=== PATIENT | male | born 1940 | race Caucasian/White ===

== ENCOUNTER → 2019-12-04 | Outpatient (CLI) | payer MEDICARE ==
--- NOTE | 2019-12-04 16:44 | RAD ---
CT CHEST WO CONTRAST Indication: Lung nodule Technique: Noncontrast CT imaging was performed of the chest, multiplanar reconstruction images submitted. One or more of the following individualized dose reduction techniques were utilized for this examination: 1. Automated exposure control 2. Adjustment of the mA and/or kV according to patient size 3. Use of iterative reconstruction technique. Comparison: None other than radiographs November 05, 2019 Findings: There has been a median sternotomy. There is severe emphysema. There is no abnormal pericardial or pleural fluid, pneumothorax, or infiltrate. There is coronary calcification. There is mild likely fibrotic change near the lung apices, right greater than left. There is a small 0.3 cm right middle lobe nodule image 213 series 4. There is a small 0.4 cm right lower lobe nodule 223 series 4. There is a small 0.3 cm right lower lobe nodule image 184 series 4. There is some of atherosclerotic calcification of the thoracic and abdominal aorta. There is an exophytic cyst of the left kidney about 1.6 cm. There is also focus of exophytic hyperdensity of the superior right kidney projecting laterally about 1.1 cm with density measurements not of a simple cyst about 55 Hounsfield units. There is fairly prominent coronary calcification. Tubular ascending thoracic aorta is slightly ectatic about 3.7 cm. No significantly enlarged nodes are identified of the chest. There is no abnormality of the thyroid gland. There is multilevel thoracic degenerative disc disease greatest of mid to inferior thoracic levels. IMPRESSION: 1. There is severe emphysema. There are some small pulmonary nodules as stated, optional 12 month follow-up if increased risk factors for neoplasm as per revised Fleischner guidelines, otherwise no additional follow-up needed if considered low risk factors. 2. There is coronary calcification. 3. There is left renal cyst. There is 1 cm exophytic lesion of the right kidney which may be a hemorrhagic or complex cyst, although ultrasound may be beneficial to exclude small solid mass. Electronically signed by: Jose Elena MD (12/04/2019 4:41 PM) [id number]
== END | disposition home or self-care (01) ==
LOC: CT 12:49
PROVIDERS: ATTEND Internal Medicine Pulmonary Disease
DX: R91.8 Other nonspecific abnormal finding of lung field (principal); J43.9 Emphysema, unspecified; I25.10 Atherosclerotic heart disease of native coronary artery without angina pectoris; I70.0 Atherosclerosis of aorta; I77.810 Thoracic aortic ectasia; N28.1 Cyst of kidney, acquired
CPT/HCPCS: 71250

== ENCOUNTER → 2021-01-02 | Outpatient (CLI) | payer MEDICARE ==
--- NOTE | 2021-01-02 11:29 | RAD ---
EXAM: CT Chest without IV contrast INDICATION: Reason: LUNG NODULE / Spl. Instructions: / History: TECHNIQUE: Multi-detector row CT images were acquired from the thoracic inlet through the upper abdo men without the use of IV contrast. Sagittal and coronal images were acquired from the transaxial demi a. All CT scans performed at this facility utilize dose optimization techniques as appropriate to the exam, including the following: Automated exposure control and adjustment of the mA and/or KV accordi ng to patient size (this includes techniques or standardized protocols for targeted exams where dose is indication/reason for exam). COMPARISON: Noncontrast chest CT of 12/04/2019 FINDINGS: The absence of IV contrast limits evaluation of soft tissue pathology. CARDIOVASCULAR: Post CABG surgical changes are present with both AGUILAR to LAD and an RCA vein graft. The aorta is normal in caliber with scattered calcifications. Normal variant arch origin of the left vertebral artery. MEDIASTINUM & WOODY: No adenopathy or masses. Thyroid gland is mildly diminutive. LUNGS: There is panlobular emphysema. No pulmonary infiltrate, nodule, or other focal abnormality is appreciated on this examination. The small pulmonary nodules reported previously are less apparent on this exam. PLEURAL SPACE: No pleural effusions or pneumothorax. OSSEOUS & SOFT TISSUE: Unremarkable ABDOMEN: Included upper abdomen shows surgical clips in the upper abdominal retroperitoneum, incompl etely imaged. IMPRESSION: Emphysema. No suspicious pulmonary nodules identified. Electronically signed by: Rosina Kelly MD (01/02/2021 11:27 AM) [id number]
== END ==
LOC: CT 10:48
PROVIDERS: ATTEND Internal Medicine Pulmonary Disease
DX: J43.1 Panlobular emphysema (principal); R91.1 Solitary pulmonary nodule
CPT/HCPCS: 71250

== ENCOUNTER 2021-06-27 14:32 | Inpatient (IN) | payer MEDICARE ==
[~2021-06-27] VITALS: Ht 182.9 cm; Wt 64.1 kg
--- NOTE | 2021-06-27 14:41 | PHYS DOC ---
Adult General Chief Complaint Chief Complaint: SHORTNESS OF BREATH HPI HPI Patient is a 80-year-old male presenting via EMS for shortness of breath. Patient lives at home with family members. Initial call to EMS was for chronic arthritis pain of left knee. On arrival, patient was found to be in respiratory distress. EMS triage patient and found him to be 60% oxygen saturation on room air and febrile with a temperature greater than 100.4. Patient was immediately placed on supplemental oxygen via nasal cannula and subsequent nonrebreather with x2 DuoNeb treatment was administered with improvement in symptoms and hypoxia on arrival to our ER. On arrival, patient continues to voice left knee pain without any focal mechanism of injury, states it is chronic. Also complaining of shortness of breath. He has known history of COPD for which he does not use supplemental oxygen at home, only utilizes rescue inhaler and x1 unknown maintenance inhaler daily. Patient has significant cardiovascular disease history with prior CABG, states he is on no blood thinners, aspirin or Plavix. States he has never had a blood clot in the past. Denies any recent prodromal symptoms or other upper respiratory symptoms. Does admit he has had increased difficulty with urinating past 72 hours which is new for him. He is vaccinated against COVID-19 Review of Systems Review of Systems Fourteen body systems of review of systems have been reviewed. See HPI for pertinent positives and negative responses, other manuel all other systems are negative, non-pertinent or non-contributory Physical Exam Physical Exam Constitutional: Age-appropriate, presenting in acute respiratory failure speaking in few word sentences only HENT: Normocephalic, atraumatic, bilateral external ears normal, oropharynx moist, no oral exudates, nose normal. Eyes: PERRLA, EOMI, conjunctiva normal, no discharge. Neck: Normal range of motion, no tenderness, supple, no stridor. Cardiovascular: Heart rate tachycardic, sinus rhythm, no murmurs rubs or gallops Lungs & Thorax: In acute respiratory failure with hypoxia with increased accessory muscle use of lab and abdomen noted, speaking in single word sentences only Abdomen: Bowel sounds normal, soft, no tenderness, no masses, no pulsatile masses. Nonsurgical abdomen, no peritoneal signs Skin: Warm, dry, no erythema, no rash. Back: No tenderness, no CVA tenderness. Extremities: No tenderness, no cyanosis, no clubbing, ROM intact, 2+ pitting edema to bilateral lower extremities Neurologic: Alert and oriented X 3, grossly normal motor & sensory function, no focal deficits noted. Psychologic: Anxious affect and mood Current Patient Data Vital Signs Vital Signs Date Time Temp Pulse Resp B/P (MAP) Pulse Ox O2 Delivery O2 Flow Rate FiO2 06/27/21 14:45 98.4 107 32 114/39 93 4.0 Vital Signs Date Time Temp Pulse Resp B/P (MAP) Pulse Ox O2 Delivery O2 Flow Rate FiO2 06/27/21 14:45 98.4 107 32 114/39 93 4.0 Lab Results Laboratory Tests Test 06/27/21 15:19 06/27/21 15:25 06/27/21 17:20 White Blood Count 11.2 x10^3/uL Red Blood Count 4.64 x10^6/uL Hemoglobin 13.9 g/dL Hematocrit 42.9 % Mean Corpuscular Volume 92 fL Mean Corpuscular Hemoglobin 30 pg Mean Corpuscular Hemoglobin Concent 33 g/dL Red Cell Distribution Width 15.1 % Platelet Count 178 x10^3/uL Neutrophils (%) (Auto) 85 % Lymphocytes (%) (Auto) 4 % Monocytes (%) (Auto) 11 % Eosinophils (%) (Auto) 0 % Basophils (%) (Auto) 1 % Neutrophils # (Auto) 9.5 x10^3uL Lymphocytes # (Auto) 0.4 x10^3/uL Monocytes # (Auto) 1.2 x10^3/uL Eosinophils # (Auto) 0.0 x10^3/uL Basophils # (Auto) 0.1 x10^3/uL Sodium Level 143 mmol/L Potassium Level 5.3 mmol/L Chloride Level 107 mmol/L Carbon Dioxide Level 25 mmol/L Anion Gap 11 Blood Urea Nitrogen 60 mg/dL Creatinine 3.0 mg/dL Estimated GFR (Cockcroft-Gault) 20.1 BUN/Creatinine Ratio 20 Glucose Level 144 mg/dL Lactic Acid Level 2.7 mmol/L Calcium Level 8.7 mg/dL Total Bilirubin 0.6 mg/dL Aspartate Amino Transf (AST/SGOT) 23 U/L Alanine Aminotransferase (ALT/SGPT) 17 U/L Alkaline Phosphatase 69 U/L Troponin I Quantitative 0.332 ng/mL [id number] Natriuretic Peptide > 86271 pg/mL Total Protein 7.7 g/dL Albumin 3.4 g/dL Albumin/Globulin Ratio 0.8 Bedside Venous pH 7.24 Bedside Venous pCO2 60 mmHg Bedside Venous pO2 29 mmHg Venous Blood HCO3 25 mmol/L POC Venous O2 Saturation ([place]) 43 % Bedside FiO2 36 Urine Collection Type U cath Urine Color Yellow Urine Clarity Clear Urine pH 5.0 Urine Specific [place] 1.020 Urine Protein 30 mg/dl Urine Glucose (UA) Neg mg/dL Urine Ketones (Stick) Neg mg/dL Urine Blood Small Urine Nitrite Neg Urine Bilirubin Small Urine Urobilinogen Dipstick 0.2 mg/dL Urine Leukocyte Esterase Neg Urine RBC 1-2 /HPF Urine WBC 1-4 /HPF Urine Squamous Epithelial Cells Few /LPF Urine Bacteria 0 /HPF Urine Hyaline Casts Few /HPF Current Medications Medications (Trade) Dose Ordered Sig/Farhad Route PRN Reason Start Time Stop Time Status Last Admin Dose Admin Methylprednisolone Sodium Succinate (SOLU-Medrol 125MG VIAL) 125 mg 1X ONCE IV 06/27/21 15:00 06/27/21 15:01 DC 06/27/21 15:30 Aspirin (Aspirin Chewable) 324 mg 1X ONCE PO 06/27/21 15:00 06/27/21 15:01 DC 06/27/21 15:39 Acetaminophen (Tylenol) 650 mg 1X ONCE PO 06/27/21 15:00 06/27/21 15:01 DC 06/27/21 15:40 Ceftriaxone Sodium 1 gm/ Sodium Chloride 50 ml @ 100 mls/hr 1X ONCE IV 06/27/21 14:45 06/27/21 15:14 DC 06/27/21 16:59 Azithromycin 500 mg/Sodium Chloride 250 ml @ 250 mls/hr 1X ONCE IV 06/27/21 15:00 06/27/21 15:59 DC 06/27/21 15:31 Iohexol (Omnipaque 350 Mg/ml) 100 ml 1X ONCE IV 06/27/21 14:45 06/27/21 14:53 DC Sodium Chloride 250 ml @ As Directed STK-MED ONCE .ROUTE 06/27/21 14:51 06/27/21 14:51 DC Azithromycin (Zithromax) 500 mg STK-MED ONCE IV 06/27/21 14:51 06/27/21 14:51 DC Sodium Chloride 50 ml @ As Directed STK-MED ONCE .ROUTE 06/27/21 16:33 06/27/21 16:33 DC Ceftriaxone Sodium (Rocephin) 1 gm STK-MED ONCE .ROUTE 06/27/21 16:33 06/27/21 16:34 DC Furosemide (Lasix) 100 mg 1X ONCE IVP 06/27/21 17:00 06/27/21 17:01 DC 06/27/21 17:09 EKG EKG EKG ordered and interpreted by myself at 1539 hrs. as sinus rhythm at 99 bpm, prolonged QTC at 478, no axis deviation, T wave inversion noted in lead V4 through V6 Radiology/Procedures Radiology/Procedures EXAM: Chest, single view. HISTORY: Shortness of breath. COMPARISON: None. FINDINGS: A frontal view of the chest is obtained. There is no infiltrate, pleural effusion or pneumothorax. There are chronic appearing interstitial changes. The heart is normal in size. There is evidence of prior CABG. IMPRESSION: No acute pulmonary finding. Electronically signed by: Mary Shoemaker MD (06/27/2021 3:07 PM) [id number] Heart Score C/O Chest Pain: No HEART Score for Chest Pain: HEART Score for Chest Pain Response (Comments) Value History Moderately Suspicious 1 ECG Nonspecific Repolarizatio 1 Age > 65 2 Risk Factors >3 Risk Factors or Hx CAD 2 Troponin >3 x Normal Limit 2 Total 8 Risk Factors: Risk Factors: DM, Current or recent (<one month) smoker, HTN, HLP, family history of CAD, obesity. Risk Scores: Risk Factors: DM, Current or recent (<one month) smoker, HTN, HLP, family history of CAD, obesity. Course & Med Decision Making Course & Med Decision Making Patient in acute respiratory distress on arrival. Supplemental oxygen, IV access and diagnostic ER work-up ensued He was initially reported that patient was febrile in the field by EMS and so, there was suspicion about infectious process Nonetheless, after further evaluation it appears patient is suffering from an acutely fluid overloaded state causing his elevated creatinine and troponin in a patient without any chest pain Condition dramatically improved with BiPAP and Lasix use. No available beds at outlying institution such as [facility] where patient's social services director is Patient amenable as his PCP who will also serve as hospitalist for admission here [facility]. I updated patient on need for hospital admission and he was amenable. All questions and concerns addressed prior to hospital admission. He does confirm he is DNR status Critical Care Time This patient required critical care. Due to the fact that the patient required a significant amount of one on one physician - patient contact time, ordering and review of studies, arranging urgent treatment with development of a management plan, evaluation of patients response to treatment with frequent reassessments, and discussions with other providers this patient required 40 minutes of critical care time. Critical care time was indicated due to the inherent instability and/or potential for instability in this patient. The critical care time that is allocated to this patient is above and beyond any time spent on any other billable procedures performed on this patient. Dragon Disclaimer Dragon Disclaimer This electronic medical record was generated, in whole or in part, using a voice recognition dictation system. Departure Departure: Impression: Primary Impression: Acute respiratory distress Additional Impressions: Acute exacerbation of CHF (congestive heart failure) Elevated serum creatinine Elevated troponin Disposition: ADMITTED INPATIENT Admitting Physician: Kvng Frias Condition: GUARDED Referrals: KVNG FRIAS MD (PCP) Problem Qualifiers HECTOR HARP DO Jun 27, 2021 14:41
[2021-06-27] MEDS ORDERED: IOHEXOL 350 MG/ML 100 ML VIAL. IV ONE (14:45)
[2021-06-27] MEDS ORDERED: AZITHROMYCIN 500 MG VIAL. IV ONE (14:51)
[2021-06-27] MEDS ORDERED: IV NORMAL SALINE 250ML 250 ML ONE (14:51)
[2021-06-27] MEDS ORDERED: methylPREDNISolone SOD SUCC PF 125 MG/2 ML VIAL. IV ONE (15:00)
[2021-06-27] MEDS ORDERED: ACETAMINOPHEN 325 MG TABLET PO ONE (15:00)
[2021-06-27] MEDS ORDERED: AZITHROMYCIN 500 MG in IV NORMAL SALINE 250ML 250 ML IV ONE (15:00)
[2021-06-27] MEDS ORDERED: ASPIRIN CHEWABLE 81 MG TABLET. PO ONE (15:00)
--- NOTE | 2021-06-27 15:09 | RAD ---
EXAM: Chest, single view. HISTORY: Shortness of breath. COMPARISON: None. FINDINGS: A frontal view of the chest is obtained. There is no infiltrate, pleural effusion or pneumo thorax. There are chronic appearing interstitial changes. The heart is normal in size. There is evide nce of prior CABG. IMPRESSION: No acute pulmonary finding. Electronically signed by: Mary Shoemaker MD (06/27/2021 3:07 PM) [id number]
[2021-06-27 15:49] LABS: BASO # 0.1 x10^3/uL (0.0-0.2); BASO % 1 % (0-3); EOS % 0 % (0-3); HEMATOCRIT 42.9 % (39.0-53.0); HEMOGLOBIN 13.9 g/dL (13.0-17.5); LYMPH # 0.4 x10^3/uL (1.0-4.8); LYMPH % 4 % (24-48); MEAN CORPUSCULAR HEMOGLOBIN 30 pg (25-35); MEAN CORPUSCULAR HGB CONC 33 g/dL (31-37); MEAN CORPUSCULAR VOLUME 92 fL (79-100); MONO # 1.2 x10^3/uL (0.0-1.1); MONO % 11 % (0-9); NEUT # 9.5 x10^3uL (1.8-7.7); NEUT % 85 % (31-73); PLATELET COUNT 178 x10^3/uL (140-400); RED BLOOD COUNT 4.64 x10^6/uL (4.30-5.70); RED CELL DISTRIBUTION WIDTH 15.1 % (11.5-14.5); WHITE BLOOD COUNT 11.2 x10^3/uL (4.0-11.0)
[2021-06-27 16:01] LABS: ANION GAP 11 (6-14); BLOOD UREA NITROGEN 60 mg/dL (8-26); BUN/CREATININE RATIO 20 (6-20); CALCIUM 8.7 mg/dL (8.5-10.1); CARBON DIOXIDE 25 mmol/L (21-32); CHLORIDE 107 mmol/L (98-107); GFR 20.1; GLUCOSE 144 mg/dL (70-99); POTASSIUM 5.3 mmol/L (3.5-5.1); SODIUM 143 mmol/L (136-145)
--- NOTE | 2021-06-27 16:12 | EKG ---
[address] [address] Test Date: 2021-06-27 Test Time: 15:23:02 Pat Name: JACK PINA Department: Room: Gender: M Wharf Hand: KRISTIN : 1940 Requested By: HECTOR HARP Order Number: [id number] Reading MD: Measurements Intervals Radiant Rate: 99 P: UT: QRS: 85 QRSD: 96 T: -35 QT: 368 QTc: 478 Interpretive Statements ACCELERATED JUNCTIONAL RHYTHM ST & T ABNORMALITY, CONSIDER ANTERIOR ISCHEMIA OR LEFT VENTRICULAR STRAIN INFEROLATERAL ISCHEMIA OR LEFT VENTRICULAR STRAIN ABNORMAL ECG RI6.02 No previous ECG available for comparison
[2021-06-27 16:15] LABS: ALBUMIN 3.4 g/dL (3.4-5.0); ALBUMIN/GLOBULIN RATIO 0.8 (1.0-1.7); ALK PHOS 69 U/L (46-116); ALT (SGPT) 17 U/L (16-63); AST (SGOT) 23 U/L (15-37); TOTAL BILIRUBIN 0.6 mg/dL (0.2-1.0); TOTAL PROTEIN 7.7 g/dL (6.4-8.2)
[2021-06-27] MEDS ORDERED: IV NORMAL SALINE 50ML 50 ML ONE (16:33)
[2021-06-27] MEDS ORDERED: cefTRIAXone SODIUM 1 GM VIAL ONE (16:33)
[2021-06-27] MEDS ORDERED: FUROSEMIDE 100 MG/10 ML VIAL IVP ONE (17:00)
[2021-06-27 18:15] LABS: BACTERIA,URINE 0 /HPF (0-FEW); BILIRUBIN,URINE SMALL (NEG); CLARITY,URINE CLEAR; COLOR,URINE YELLOW; GLUCOSE,URINE NEG (NEG); NITRITE,URINE NEG (NEG); SQUAMOUS EPITHELIAL CELL,UR FEW /LPF; UROBILINOGEN,URINE 0.2 mg/dL (0.2 mg/dL)
[2021-06-27 18:16] LABS: HYALINE CASTS, URINE FEW /HPF
[2021-06-27] MEDS ORDERED: NITROGLYCERIN SUBLINGUAL 0.4 MG BOTTLE OF 25. SL PRN (18:30)
[2021-06-27] MEDS ORDERED: ACETAMINOPHEN 325 MG TABLET PO PRN (18:30)
[2021-06-27 20:11] VITALS: BP 108/60
[2021-06-27] MEDS ORDERED: CLON1TAB PO (21:40)
[2021-06-27] MEDS ORDERED: OMEP40CA7 PO (21:40)
[2021-06-27] MEDS ORDERED: EZET10TA49 PO (21:40)
[2021-06-27] MEDS ORDERED: UMEC1DIS INH (21:40)
[2021-06-27] MEDS ORDERED: ASPI-630 PO (21:40)
[2021-06-27] MEDS ORDERED: HYDR-2763 PO (21:40)
[2021-06-27] MEDS ORDERED: METO25TA4 PO (21:40)
[2021-06-27] MEDS ORDERED: ALBU2.5V5 NEB (21:40)
[2021-06-27] MEDS ORDERED: ALBU2.5V8 IH (21:40)
[2021-06-27] MEDS ORDERED: CALC1CAP8 PO (21:40)
[2021-06-27] MEDS ORDERED: ACET500T68 PO (21:40)
[2021-06-27] MEDS ORDERED: PIP/TAZO PER PHARMACY MC PRN (21:45)
[2021-06-27 22:00] VITALS: BP 99/57
[2021-06-27] MEDS: FUROSEMIDE INJ 100 MG in IV NORMAL SALINE 100ML 90 ML IV PRN (22:16)
[2021-06-27 23:00] VITALS: BP 109/47
[2021-06-27] MEDS: PIPERACILLIN/TAZOBACTAM 2.25 GM in IV NORMAL SALINE 50ML 50 ML IV SCH (23:32)
[2021-06-28] VITALS (24 sets, daily range): BP systolic 88–122; BP diastolic 44–73
[2021-06-28] MEDS: PIPERACILLIN/TAZOBACTAM 2.25 GM in IV NORMAL SALINE 50ML 50 ML IV SCH ×4 (05:45→23:44)
[2021-06-28 06:16] LABS: CALCIUM 8.1 mg/dL (8.5-10.1); GFR 20.1; POTASSIUM 5.8 mmol/L (3.5-5.1)
[2021-06-28] MEDS ORDERED: clonazePAM 1 MG TABLET PO PRN (06:30)
[2021-06-28] MEDS ORDERED: ALBUTEROL SULFATE 2.5 MG/3 ML NEBU. IH PRN (06:30)
[2021-06-28] MEDS ORDERED: MORPHINE SULFATE 2 MG/ML DISP.SYRIN. IV PRN (06:30)
[2021-06-28] MEDS ORDERED: ACETAMINOPHEN 500 MG TABLET PO PRN (06:30)
[2021-06-28 07:24] LABS: MAGNESIUM 2.8 mg/dL (1.8-2.4)
[2021-06-28] MEDS: FUROSEMIDE INJ 100 MG in IV NORMAL SALINE 100ML 90 ML IV PRN (07:35)
[2021-06-28] MEDS: CARVEDILOL 6.25 MG TABLET PO SCH ×2 (08:00→17:00)
--- NOTE | 2021-06-28 08:24 | PDOC2 ---
DEEPTHI SALMERON CYDNEY 06/28/21 0824: CARDIAC CONSULT DATE OF CONSULT DOS: DATE: 06/28/21 TIME: 08:17 REASON FOR CONSULT Reason for Consult CHF REFERRING PHYSICIAN Referring Physician Dr. Lebron SOURCE Source: Chart review, Patient HPI History of Present Illness This is an 80 yo male who presented secondary shortness of breath. EMS noted respiratory failure with oxygen saturations in the 60's upon their arrival. reports significant left knee pain for the last week or so. Has been taking hydrocodone for pain, which has caused some confusion. Normally ambulates with m otorized wheelchair. Has not been moving much due to knee pain. reports he has stayed in his chair in the living room most of all the time. This past Saturday, developed some shortness of breath. Has a history of COPD and uses his nebulizer 4 times per day. Breathing difficulties progressively worsened over the week and were not improved by breathing treatments. noted decreased urine output since Saturday. Noted with some LE edema bilaterally. No reports of chest pain, palpitations, dizziness, diaphoresis, or fevers/illness. Continues to complain of LLE pain. PAST MEDICAL HISTORY Cardiovascular: CAD, HTN, hyperipidemia, Other (PAD, AAA ) Pulmonary: COPD GI: GERD Psych: Anxiety Musculoskeletal: Osteoarthritis PAST SURGICAL HISTORY Past Surgical History: CABG FAMILY HISTORY Family History: Hypertension SOCIAL HISTORY Smoke: Quit ALCOHOL: none Drugs: None Lives: with Family CURRENT MEDICATIONS Current Medications Current Medications Methylprednisolone Sodium Succinate (SOLU-Medrol 125MG VIAL) 125 mg 1X ONCE IV Last administered on 06/27/21at 15:30; Start 06/27/21 at 15:00; Stop 06/27/21 at 15:01; Status DC Aspirin (Aspirin Chewable) 324 mg 1X ONCE PO Last administered on 06/27/21at 15:39; Start 06/27/21 at 15:00; Stop 06/27/21 at 15:01; Status DC Acetaminophen (Tylenol) 650 mg 1X ONCE PO Last administered on 06/27/21at 15:40; Start 06/27/21 at 15:00; Stop 06/27/21 at 15:01; Status DC Ceftriaxone Sodium 1 gm/ Sodium Chloride 50 ml @ 100 mls/hr 1X ONCE IV Last administered on 06/27/21at 16:59; Start 06/27/21 at 14:45; Stop 06/27/21 at 15:1 4; Status DC Azithromycin 500 mg/Sodium Chloride 250 ml @ 250 mls/hr 1X ONCE IV Last administered on 06/27/21at 15:31; Start 06/27/21 at 15:00; Stop 06/27/21 at 15:59; Status DC Iohexol (Omnipaque 350 Mg/ml) 100 ml 1X ONCE IV ; Start 06/27/21 at 14:45; Stop 06/27/21 at 14:53; Status DC Sodium Chloride 250 ml @ As Directed STK-MED ONCE .ROUTE ; Start 06/27/21 at 14:51; Stop 06/27/21 at 14:51; Status DC Azithromycin (Zithromax) 500 mg STK-MED ONCE IV ; Start 06/27/21 at 14:51; Stop 06/27/21 at 14:51; Status DC Sodium Chloride 50 ml @ As Directed STK-MED ONCE .ROUTE ; Start 06/27/21 at 16:33; Stop 06/27/21 at 16:33; Status DC Ceftriaxone Sodium (Rocephin) 1 gm STK-MED ONCE .ROUTE ; Start 06/27/21 at 16:33; Stop 06/27/21 at 16:34; Status DC Furosemide (Lasix) 100 mg 1X ONCE IVP Last administered on 06/27/21at 17:09; Start 06/27/21 at 17:00; Stop 06/27/21 at 17:01; Status DC Acetaminophen (Tylenol) 650 mg PRN Q4HRS PRN PO FEVER > 100.3'F Last administered on 06/28/21at 00:42; Start 06/27/21 at 18:30; Stop 06/28/21 at 18:29 Nitroglycerin (Nitrostat) 0.4 mg PRN Q5MIN PRN SL CHEST PAIN; Start 06/27/21 at 18:30; Stop 06/28/21 at 18:29 Furosemide 100 mg/ Sodium Chloride 100 ml @ 10 mls/hr CONT PRN IV SEE I/O RECORD Last administered on 06/28/21at 07:35; Start 06/27/21 at 22:00 Piperacillin Sod/ Tazobactam Sod (Zosyn Per Pharmacy) 1 each PRN DAILY PRN MC SEE COMMENTS; Start 06/27/21 at 21:45 Piperacillin Sod/ Tazobactam Sod 2.25 gm/Sodium Chloride 50 ml @ 100 mls/hr Q6HRS IV Last administered on 06/28/21at 05:45; Start 06/28/21 at 00:00 Acetaminophen (Tylenol) 500 mg PRN Q4HRS PRN PO MILD PAIN / TEMP > 100.3'F; Start 06/28/21 at 06:30 Albuterol Sulfate (Ventolin) 2.5 mg RTQID NEB ; Start 06/28/21 at 08:00 Albuterol Sulfate (Ventolin) 2.5 mg PRN QID PRN IH WHEEZING; Start 06/28/21 at 06:30 Aspirin (Aspirin Chewable) 81 mg DAILY PO ; Start 06/28/21 at 09:00 Clonazepam (KlonoPIN) 1 mg PRN Q8HRS PRN PO ANXIETY; Start 06/28/21 at 06:30 EZETIMIBE (Zetia) 10 mg DAILY PO ; Start 06/28/21 at 09:00 Acetaminophen/ Hydrocodone Bitart (Lortab 7.5/325) 1 tab PRN Q6HRS PRN PO PAIN; Start 06/28/21 at 06:30 Calcium/Vitamin D (Oscal D 500mg/ 200uts) 1 tab DAILY PO ; Start 06/28/21 at 09:00 Pantoprazole Sodium (Protonix) 40 mg DAILYAC PO ; Start 06/28/21 at 07:30 Budesonide (Pulmicort) 0.5 mg RTBID NEB ; Start 06/28/21 at 08:00 Enoxaparin Sodium (Lovenox 30mg Syringe) 30 mg DAILY SQ ; Start 06/28/21 at 09:00 Morphine Sulfate (Morphine 2mg Syringe) 2 mg PRN Q2HR PRN IV PAIN; Start 06/28/21 at 06:30 Carvedilol (Coreg) 6.25 mg BIDWMEALS PO ; Start 06/28/21 at 08:00 Active Scripts Active Reported Albuterol Sulfate Neb Soln (Albuterol Sulfate) 2.5 Mg/3 Ml Vial.neb 2.5 Mg NEB QID Calcium 600+D Softgel (Calcium Carbonate/Vitamin D3) 1 Each Capsule 1 Cap PO DAILY 30 Days Aspirin 81 Mg Tab.chew 81 Mg PO DAILY Acetaminophen 500 Mg Tablet 500 Mg PO PRN Q4HRS PRN Proair Hfa Inhaler (Albuterol Sulfate) 8.5 Gm Hfa.aer.ad 2 Puff IH PRN QID PRN Metoprolol Tartrate 25 Mg Tablet 1 Tab PO BID Omeprazole 40 Mg Capsule.dr 1 Cap PO DAILY Klonopin (Clonazepam) 1 Mg Tablet 1 Mg PO PRN Q8HRS PRN Ezetimibe 10 Mg Tablet 1 Tab PO DAILY Anoro Ellipta 62.5-25 Mcg Inh (Umeclidinium Brm/Vilanterol Tr) 1 Each Disk.w.dev 1 Puff INH DAILY Hydrocodone-Acetamin 7.5-325 (Hydrocodone/Acetaminophen) 1 Each Tablet 1 Tab PO PRN Q6HRS PRN ALLERGIES Allergies: Coded Allergies: Penicillins (Verified Allergy, Unknown, 06/27/21) adhesive (Verified Allergy, Unknown, 06/27/21) ROS Review of Systems 14 point ROS conducted with pertinent positives noted above in HPI PHYSICAL EXAM General: Alert, Cooperative, No acute distress HEENT: Atraumatic Lungs: Other (diminished bases) Heart: Regular rate Abdomen: Soft, No tenderness Extremities: Other (2+ bilateral LE edema. ) Skin: No significant lesion (LLE erythema ) Neuro: Normal speech, Sensation intact Psych/Mental Status: Mood NL MUSCULOSKELETAL: Osteoarthritic changes both hands VITALS Vital Signs Vital Signs Date Time Temp Pulse Resp B/P (MAP) Pulse Ox O2 Delivery O2 Flow Rate FiO2 06/28/21 08:02 93 18 99/54 (69) 99 Nasal Cannula 2.0 06/28/21 07:20 97.6 LABS LABS Laboratory Tests Test 06/27/21 15:19 06/27/21 15:25 06/27/21 16:40 06/27/21 17:20 White Blood Count 11.2 x10^3/uL (4.0-11.0) Red Blood Count 4.64 x10^6/uL (4.30-5.70) Hemoglobin 13.9 g/dL (13.0-17.5) Hematocrit 42.9 % (39.0-53.0) Mean Corpuscular Volume 92 fL (79-100) Mean Corpuscular Hemoglobin 30 pg (25-35) Mean Corpuscular Hemoglobin Concent 33 g/dL (31-37) Red Cell Distribution Width 15.1 % (11.5-14.5) Platelet Count 178 x10^3/uL (140-400) Neutrophils (%) (Auto) 85 % (31-73) Lymphocytes (%) (Auto) 4 % (24-48) Monocytes (%) (Auto) 11 % (0-9) Eosinophils (%) (Auto) 0 % (0-3) Basophils (%) (Auto) 1 % (0-3) Neutrophils # (Auto) 9.5 x10^3uL (1.8-7.7) Lymphocytes # (Auto) 0.4 x10^3/uL (1.0-4.8) Monocytes # (Auto) 1.2 x10^3/uL (0.0-1.1) Eosinophils # (Auto) 0.0 x10^3/uL (0.0-0.7) Basophils # (Auto) 0.1 x10^3/uL (0.0-0.2) Sodium Level 143 mmol/L (136-145) Potassium Level 5.3 mmol/L (3.5-5.1) Chloride Level 107 mmol/L (98-107) Carbon Dioxide Level 25 mmol/L (21-32) Anion Gap 11 (6-14) Blood Urea Nitrogen 60 mg/dL (8-26) Creatinine 3.0 mg/dL (0.7-1.3) Estimated GFR (Cockcroft-Gault) 20.1 BUN/Creatinine Ratio 20 (6-20) Glucose Level 144 mg/dL (70-99) Lactic Acid Level 2.7 mmol/L (0.4-2.0) Calcium Level 8.7 mg/dL (8.5-10.1) Total Bilirubin 0.6 mg/dL (0.2-1.0) Aspartate Amino Transf (AST/SGOT) 23 U/L (15-37) Alanine Aminotransferase (ALT/SGPT) 17 U/L (16-63) Alkaline Phosphatase 69 U/L (46-116) Troponin I Quantitative 0.332 ng/mL (0-0.055) HF-Ahe-C-Type Natriuretic Peptide > 04619 pg/mL (0-449) Total Protein 7.7 g/dL (6.4-8.2) Albumin 3.4 g/dL (3.4-5.0) Albumin/Globulin Ratio 0.8 (1.0-1.7) Bedside Venous pH 7.24 (7.32-7.42) Bedside Venous pCO2 60 mmHg (41-51) Bedside Venous pO2 29 mmHg (20-40) Venous Blood HCO3 25 mmol/L (24-28) POC Venous O2 Saturation (Checo) 43 % Bedside FiO2 36 Coronavirus (COVID-19)(PCR) Negative (NEGATIVE) Urine Collection Type U cath Urine Color Yellow Urine Clarity Clear Urine pH 5.0 Urine Specific [place] 1.020 Urine Protein 30 mg/dl (NEG-TRACE) Urine Glucose (UA) Neg mg/dL (NEG) Urine Ketones (Stick) Neg mg/dL (NEG) Urine Blood Small (NEG) Urine Nitrite Neg (NEG) Urine Bilirubin Small (NEG) Urine Urobilinogen Dipstick 0.2 mg/dL (0.2 mg/dL) Urine Leukocyte Esterase Neg (NEG) Urine RBC 1-2 /HPF (0-2) Urine WBC 1-4 /HPF (0-4) Urine Squamous Epithelial Cells Few /LPF Urine Bacteria 0 /HPF (0-FEW) Urine Hyaline Casts Few /HPF Test 06/27/21 20:40 06/28/21 00:30 06/28/21 05:40 Lactic Acid Level 3.3 mmol/L (0.4-2.0) Troponin I Quantitative 0.384 ng/mL (0-0.055) 0.310 ng/mL (0-0.055) 0.253 ng/mL (0-0.055) Sodium Level 137 mmol/L (136-145) Potassium Level 5.8 mmol/L (3.5-5.1) Chloride Level 106 mmol/L (98-107) Carbon Dioxide Level 28 mmol/L (21-32) Anion Gap 3 (6-14) Blood Urea Nitrogen 69 mg/dL (8-26) Creatinine 3.0 mg/dL (0.7-1.3) Estimated GFR (Cockcroft-Gault) 20.1 Glucose Level 142 mg/dL (70-99) Calcium Level 8.1 mg/dL (8.5-10.1) Magnesium Level 2.8 mg/dL (1.8-2.4) Creatine Kinase 215 U/L (39-308) IMAGES IMAGES 08/22/18 - PV AORTA/ILIAC FOR PVD Interpretation Summary No evidence of abdominal aortic aneurysm No significant stenosis in aorta and visualized arteries. Low abdominal aorta velocities, may be due to graft Stented graft distal aorta/ proximal common iliac arteries without significant stenosis Compared to previous study on 06/07/2015, there is no significant change ECHOCARDIOGRAM Echocardiogram 08/22/18 - 2-D + DOPPLER ECHOCARDIOGRAM Interpretation Summary Normal chamber sizes Left ventricular ejection fraction = 60% Unremarkable cardiac valve structures and function for age Unable to calculate pulmonary artery pressure Mild dilation of the sinuses of Valsalva No significant pericardial effusion On the prior study of 03/11/13, the sinuses of Valsalva measured 3.9 cm ASSESSMENT/PLAN Assessment/Plan 1. Acute on chronic respiratory failure with AE COPD and CHF 2. Acute diastolic CHF; Echo 08/21 with LVEF 60%. On Lasix gtt 3. TK on CKD, hyperkalemia; Cr 1.48 (07/24) per review of [facility] records 4. Elevated troponin; peak 0.384. Most probably type II, demand ischemia. CP free 5. CAD s/p CABG [address] Jayden MONTGOMERY. MPI 2012 without evidence of ischemia 6. Leukocytosis, lactic acidosis, LLE cellulitis. as per IM 7. Hypertension; low end 8. Hyperlipidemia; on Zetia. intolerant to statins 10. Arthritis, LLE/knee pain 11. 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 Abdominal aortic aneurysm s/p TEVAR. converted to open repair in 2008 Recommendations Monitor renal function, UOP closely Secondary prevention as able Echo to assess LV systolic function LE doppler to r/o DVT Hold Coreg as warranted with low-end BP Outpatient ischemic evaluation Lung optimization Supportive care DIANNE RUIZ MD 06/28/21 2326: CARDIAC CONSULT ASSESSMENT/PLAN Assessment/Plan Patient seen and examined. Agree with above nurse practitioner note with the following comments Although the patient has bilateral lower extremity edema this appears to be m ostly venous insufficiency and/or right-sided heart failure. He does not have any clear evidence of left-sided heart failure with a normal chest x-ray and normal lung exam. Await echocardiogram. Would stop Lasix gtt and plan for IVP bid dosing. Supportive care. Consider palliative care evaluation. DEEPTHI SALMERON APRN Jun 28, 2021 08:24 DIANNE RUIZ MD Jun 28, 2021 23:26
[2021-06-28] MEDS: CALCIUM CARB/VIT D3 500/200 TABLET PO SCH ×2 (09:00→09:39)
[2021-06-28] MEDS: BUDESONIDE 0.5 MG/2 ML NEBU NEB SCH ×2 (09:20→19:27)
[2021-06-28] MEDS: ALBUTEROL SULFATE 2.5 MG/3 ML NEBU. NEB SCH ×3 (09:20→15:15)
[2021-06-28] MEDS: ASPIRIN CHEWABLE 81 MG TABLET. PO SCH (09:39)
[2021-06-28] MEDS: PANTOPRAZOLE 40 MG TABLET. PO SCH (09:39)
[2021-06-28] MEDS: EZETIMIBE 10 MG TABLET PO SCH (09:39)
[2021-06-28] MEDS: ENOXAPARIN 30 MG/0.3 ML SYRINGE. SQ SCH (09:40)
--- NOTE | 2021-06-28 11:02 | RAD ---
EXAM: Bilateral lower extremity Doppler venous ultrasound CLINICAL HISTORY: Reason: Lower ext swelling, redness, pain COMPARISON: None available. TECHNIQUE: Ultrasound evaluation of the bilateral lower extremities was performed with alba scale, spectral and color doppler evaluation. FINDINGS: Exam is limited by patient pain and movement during the exam. The right proximal superficial femoral vein is incompletely compressible. Small nonocclusive thrombus is possible. The right common femoral vein, mid to distal right superficial femoral vein, and right popliteal vein are compressible with normal color and spectral Doppler flow. The left common femoral, superficial femoral, and popliteal veins are patent with normal compressibility and color and spectr al Doppler flow. Calf veins are patent. IMPRESSION: 1. Possible small nonocclusive thrombus in the right proximal superficial femoral vein. This could be acute or chronic. 2. No acute deep venous thrombosis in the left lower extremity. Electronically signed by: Samantha Flower MD (06/28/2021 11:00 AM) [id number]
--- NOTE | 2021-06-28 13:01 | EKG ---
[address] [address] Test Date: 2021-06-28 Test Time: 09:29:43 Pat Name: JACK PINA Department: Room: [facility] 1 Gender: M [employer]er: : 1940 Requested By: KVNG FRIAS Order Number: [id number] Reading MD: Measurements Intervals [place] Rate: 83 P: 57 [place]: 130 QRS: 79 QRSD: 92 T: 1 QT: 420 QTc: 494 Interpretive Statements SINUS RHYTHM QRS(T) CONTOUR ABNORMALITY CONSIDER ANTEROLATERAL MYOCARDIAL DAMAGE ST & T ABNORMALITY, CONSIDER ANTERIOR ISCHEMIA OR LEFT VENTRICULAR STRAIN ABNORMAL ECG RI6.01 No previous ECG available for comparison
[2021-06-28] MEDS ORDERED: levoFLOXacin PER PHARMACY 1 EACH. MC PRN (17:15)
[2021-06-28] MEDS ORDERED: VANCOMYCIN 1 GM in IV NORMAL SALINE 250ML 250 ML IV ONE (17:30)
[2021-06-28] MEDS: HYDROcodone/APAP 7.5/325MG 1 TAB TABLET PO PRN (18:17)
--- NOTE | 2021-06-28 19:04 | HP ---
ADMIT DATE: 06/27/2021 HISTORY OF PRESENT ILLNESS: This is an 80-year-old male came in through the Emergency Room with increased shortness of breath. The patient noted he thought he initially does have pain in his left knee; however, the patient was found to be in respiratory distress with oxygen only 60%, febrile with temperature of 100.4. The patient was immediately placed on oxygen and DuoNeb treatments. The patient, however, was found when he came in through the Emergency Room to be in florid congestive heart failure. The patient's BNP was in excess of 35,000. The patient also had elevated lactic acid. He also had elevated troponins, probably from the heart failure itself. The patient himself was quite frail and despondent and it looks like he had a combination possibility of congestive heart failure as well as sepsis. Blood pressure was being monitored as it did drop down as low as 79/46 with pulse up in the low 100s. He was on 4 liters at 91%. The patient fortunately was COVID negative. PAST MEDICAL HISTORY: He has a history of breathing problems, asthma, emphysema, hypertension. 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 Had surgeries on his left foot, left ankle, multiple cases of pneumonia, APUD. ALLERGIES: PENICILLINS. HE IS ALSO ALLERGIC TO ADHESIVE. FAMILY HISTORY: Unremarkable. SOCIAL HISTORY: The patient denies smoking, alcohol or drug use. He is a DNR. REVIEW OF SYSTEMS: He is extremely ill, difficult to get any history from him. He is very weakened by his overall medical conditions. HOME MEDICATIONS: Anoro inhaler, ProAir inhaler, albuterol nebulizers, Zetia, metoprolol, aspirin, hydrocodone, calcium, clonazepam, Prilosec 40. PHYSICAL EXAMINATION: VITAL SIGNS: Blood pressure 114/48, respiratory rate 32, pulse 107, temperature 98.4. The patient is on 4 liters at 91. HEENT: The patient's head was atraumatic, normocephalic. The patient is very weak, difficulty for him to talk. The patient's, otherwise, mouth and throat normal. NECK: Supple. LUNGS: Diminished. Rales noted primarily in both lungs assisted up. CARDIOVASCULAR: Regular sinus rhythm, S1, S2. Abnormal EKG, otherwise. ABDOMEN: Soft, nontender. EXTREMITIES: No clubbing, cyanosis. +3-4 pitting edema. Pulses noted distally, weakness and atrophy in the right leg secondary to his polio. NEUROLOGIC: Alert, but as noted, probably just from the illness, he is very sedate and difficulty in verbalizing much in that way. The patient's, in turn, chest x-ray demonstrated no acute pulmonary findings, which was contrary to the clinical findings as this patient was in florid heart failure. The patient had lower extremity ultrasound, nonocclusive thrombus in the right proximal superficial femoral vein, could be acute or chronic. The patient is on Lovenox for that. ASSESSMENT AND PLAN: Otherwise, acute on top of chronic diastolic heart failure; acute respiratory failure; coronary artery disease; history of advanced chronic obstructive pulmonary disease; hypertension, essential; post-polio syndrome; history of abdominal aortic aneurysm, status repair; emphysema; hyperlipidemia. The patient otherwise will be monitored carefully here in the ICU, diuresis, placed on a Lasix drip because of the severity of his fluid retention and will make further evaluation on him as indicated. He has acute renal insufficiency as well and hyperkalemia, elevated troponin levels and probable sepsis. GI/[place]OR[place] DR: GI/angel TID: [id number]
[2021-06-28] MEDS: IPRATRPIUM/ALBUTEROL 0.5/2.5MG 3 ML NEBU. NEB SCH (19:27)
[2021-06-28] MEDS: methylPREDNISolone SOD SUCC PF 40 MG/ML VIAL. IV SCH (20:22)
[2021-06-29] VITALS (22 sets, daily range): BP systolic 84–115; BP diastolic 49–65
[2021-06-29] MEDS: HYDROcodone/APAP 7.5/325MG 1 TAB TABLET PO PRN ×3 (03:52→22:15)
[2021-06-29] MEDS: methylPREDNISolone SOD SUCC PF 40 MG/ML VIAL. IV SCH ×2 (06:05→22:15)
[2021-06-29] MEDS: PIPERACILLIN/TAZOBACTAM 2.25 GM in IV NORMAL SALINE 50ML 50 ML IV SCH (06:05)
[2021-06-29] MEDS: IPRATRPIUM/ALBUTEROL 0.5/2.5MG 3 ML NEBU. NEB SCH ×4 (06:13→20:09)
[2021-06-29 07:06] LABS: BASO % 0 % (0-3); EOS % 0 % (0-3); HEMATOCRIT 37.6 % (39.0-53.0); HEMOGLOBIN 12.5 g/dL (13.0-17.5); LYMPH # 0.2 x10^3/uL (1.0-4.8); LYMPH % 2 % (24-48); MEAN CORPUSCULAR HEMOGLOBIN 31 pg (25-35); MEAN CORPUSCULAR HGB CONC 33 g/dL (31-37); MEAN CORPUSCULAR VOLUME 92 fL (79-100); MONO # 0.1 x10^3/uL (0.0-1.1); MONO % 1 % (0-9); NEUT # 9.1 x10^3uL (1.8-7.7); NEUT % 97 % (31-73); PLATELET COUNT 152 x10^3/uL (140-400); RED CELL DISTRIBUTION WIDTH 15.1 % (11.5-14.5); WHITE BLOOD COUNT 9.4 x10^3/uL (4.0-11.0)
[2021-06-29 07:17] LABS: CALCIUM 7.8 mg/dL (8.5-10.1); CREATININE 2.6 mg/dL (0.7-1.3); GFR 23.7; POTASSIUM 4.9 mmol/L (3.5-5.1)
[2021-06-29] MEDS: CARVEDILOL 6.25 MG TABLET PO SCH (08:00)
--- NOTE | 2021-06-29 08:34 | PDOC ---
CARDIO Progress Notes Date & Time Date of Service DATE: 06/29/21 TIME: 08:32 Time of Evaluation 08:32 Subjective Notes Breathing improved. No chest pain. c/o left knee pain Vitals Vitals Vital Signs Date Time Temp Pulse Resp B/P (MAP) Pulse Ox O2 Delivery O2 Flow Rate FiO2 06/29/21 06:13 93 Nasal Cannula 2.0 06/29/21 06:00 84 17 115/65 (82) 06/29/21 05:00 97.4 Weight Weight [ ] Input and Output I.O. Intake and Output 06/29/21 07:00 Intake Total 1280 ml Output Total 2700 ml Balance -1420 ml Intake Oral 1080 ml IV Total 200 ml Output Urine Total 2700 ml Laboratory Labs Laboratory Tests Test 06/27/21 15:19 06/27/21 15:25 06/27/21 16:40 06/27/21 17:20 White Blood Count 11.2 x10^3/uL (4.0-11.0) Red Blood Count 4.64 x10^6/uL (4.30-5.70) Hemoglobin 13.9 g/dL (13.0-17.5) Hematocrit 42.9 % (39.0-53.0) Mean Corpuscular Volume 92 fL (79-100) Mean Corpuscular Hemoglobin 30 pg (25-35) Mean Corpuscular Hemoglobin Concent 33 g/dL (31-37) Red Cell Distribution Width 15.1 % (11.5-14.5) Platelet Count 178 x10^3/uL (140-400) Neutrophils (%) (Auto) 85 % (31-73) Lymphocytes (%) (Auto) 4 % (24-48) Monocytes (%) (Auto) 11 % (0-9) Eosinophils (%) (Auto) 0 % (0-3) Basophils (%) (Auto) 1 % (0-3) Neutrophils # (Auto) 9.5 x10^3uL (1.8-7.7) Lymphocytes # (Auto) 0.4 x10^3/uL (1.0-4.8) Monocytes # (Auto) 1.2 x10^3/uL (0.0-1.1) Eosinophils # (Auto) 0.0 x10^3/uL (0.0-0.7) Basophils # (Auto) 0.1 x10^3/uL (0.0-0.2) Sodium Level 143 mmol/L (136-145) Potassium Level 5.3 mmol/L (3.5-5.1) Chloride Level 107 mmol/L (98-107) Carbon Dioxide Level 25 mmol/L (21-32) Anion Gap 11 (6-14) Blood Urea Nitrogen 60 mg/dL (8-26) Creatinine 3.0 mg/dL (0.7-1.3) Estimated GFR (Cockcroft-Gault) 20.1 BUN/Creatinine Ratio 20 (6-20) Glucose Level 144 mg/dL (70-99) Lactic Acid Level 2.7 mmol/L (0.4-2.0) Calcium Level 8.7 mg/dL (8.5-10.1) Total Bilirubin 0.6 mg/dL (0.2-1.0) Aspartate Amino Transf (AST/SGOT) 23 U/L (15-37) Alanine Aminotransferase (ALT/SGPT) 17 U/L (16-63) Alkaline Phosphatase 69 U/L (46-116) Troponin I Quantitative 0.332 ng/mL (0-0.055) SW-Jsr-K-Type Natriuretic Peptide > 42009 pg/mL (0-449) Total Protein 7.7 g/dL (6.4-8.2) Albumin 3.4 g/dL (3.4-5.0) Albumin/Globulin Ratio 0.8 (1.0-1.7) Bedside Venous pH 7.24 (7.32-7.42) Bedside Venous pCO2 60 mmHg (41-51) Bedside Venous pO2 29 mmHg (20-40) Venous Blood HCO3 25 mmol/L (24-28) POC Venous O2 Saturation (Checo) 43 % Bedside FiO2 36 Coronavirus (COVID-19)(PCR) Negative (NEGATIVE) Urine Collection Type U cath Urine Color Yellow Urine Clarity Clear Urine pH 5.0 Urine Specific [place] 1.020 Urine Protein 30 mg/dl (NEG-TRACE) Urine Glucose (UA) Neg mg/dL (NEG) Urine Ketones (Stick) Neg mg/dL (NEG) Urine Blood Small (NEG) Urine Nitrite Neg (NEG) Urine Bilirubin Small (NEG) Urine Urobilinogen Dipstick 0.2 mg/dL (0.2 mg/dL) Urine Leukocyte Esterase Neg (NEG) Urine RBC 1-2 /HPF (0-2) Urine WBC 1-4 /HPF (0-4) Urine Squamous Epithelial Cells Few /LPF Urine Bacteria 0 /HPF (0-FEW) Urine Hyaline Casts Few /HPF Test 06/27/21 20:40 06/28/21 00:30 06/28/21 05:40 06/28/21 06:40 Lactic Acid Level 3.3 mmol/L (0.4-2.0) Troponin I Quantitative 0.384 ng/mL (0-0.055) 0.310 ng/mL (0-0.055) 0.253 ng/mL (0-0.055) Sodium Level 137 mmol/L (136-145) Potassium Level 5.8 mmol/L (3.5-5.1) Chloride Level 106 mmol/L (98-107) Carbon Dioxide Level 28 mmol/L (21-32) Anion Gap 3 (6-14) Blood Urea Nitrogen 69 mg/dL (8-26) Creatinine 3.0 mg/dL (0.7-1.3) Estimated GFR (Cockcroft-Gault) 20.1 Glucose Level 142 mg/dL (70-99) Calcium Level 8.1 mg/dL (8.5-10.1) Magnesium Level 2.8 mg/dL (1.8-2.4) Creatine Kinase 215 U/L (39-308) Procalcitonin 0.69 ng/mL (0.00-0.10) D-Dimer ([place]eth[place]) 6.68 mg/L (0.00-0.50) Test 06/29/21 05:35 White Blood Count 9.4 x10^3/uL (4.0-11.0) Red Blood Count 4.10 x10^6/uL (4.30-5.70) Hemoglobin 12.5 g/dL (13.0-17.5) Hematocrit 37.6 % (39.0-53.0) Mean Corpuscular Volume 92 fL (79-100) Mean Corpuscular Hemoglobin 31 pg (25-35) Mean Corpuscular Hemoglobin Concent 33 g/dL (31-37) Red Cell Distribution Width 15.1 % (11.5-14.5) Platelet Count 152 x10^3/uL (140-400) Neutrophils (%) (Auto) 97 % (31-73) Lymphocytes (%) (Auto) 2 % (24-48) Monocytes (%) (Auto) 1 % (0-9) Eosinophils (%) (Auto) 0 % (0-3) Basophils (%) (Auto) 0 % (0-3) Neutrophils # (Auto) 9.1 x10^3uL (1.8-7.7) Lymphocytes # (Auto) 0.2 x10^3/uL (1.0-4.8) Monocytes # (Auto) 0.1 x10^3/uL (0.0-1.1) Eosinophils # (Auto) 0.0 x10^3/uL (0.0-0.7) Basophils # (Auto) 0.0 x10^3/uL (0.0-0.2) Sodium Level 142 mmol/L (136-145) Potassium Level 4.9 mmol/L (3.5-5.1) Chloride Level 104 mmol/L (98-107) Carbon Dioxide Level 28 mmol/L (21-32) Anion Gap 10 (6-14) Blood Urea Nitrogen 78 mg/dL (8-26) Creatinine 2.6 mg/dL (0.7-1.3) Estimated GFR (Cockcroft-Gault) 23.7 Glucose Level 106 mg/dL (70-99) Calcium Level 7.8 mg/dL (8.5-10.1) Microbiology Micro Microbiology 06/27/21 Blood Culture - Preliminary, Resulted NO GROWTH AFTER 1 DAY... Physical Exams Chest: Symmetric Lungs: Other (diminished bases) Heart: RRR Extremities: Other (trace bilateral LE edema, erythema to left foot ) Neurology: alert, oriented Assessment Assessment 1. Acute on chronic respiratory failure with AE COPD and CHF 2. Diastolic CHF; Echo 08/21 with LVEF 60%. s/p IV Lasix 3. TK on CKD, hyperkalemia; Cr 1.48 (07/24) per review of [facility] records. Cr slightly better 4. Elevated troponin; peak 0.384. Most probably type II, demand ischemia. CP free 5. CAD s/p CABG [address] Jayden MONTGOMERY. MPI 2012 without evidence of ischemia 6. Leukocytosis, lactic acidosis, LLE cellulitis. as per IM. LLE negative for DVT. 7. Hypertension; low end 8. Hyperlipidemia; on Zetia. intolerant to statins 10. Arthritis, LLE/knee pain 11. 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 Abdominal aortic aneurysm s/p TEVAR. converted to open repair in 2008 Recommendations Discontinue Lasix Secondary prevention Coreg as BP allow. Echo to assess LV systolic function Outpatient ischemic evaluation Treatment of cellulitis as per IM Supportive care DEEPTHI SALMERON APRN Jun 29, 2021 08:34
[2021-06-29] MEDS: CALCIUM CARB/VIT D3 500/200 TABLET PO SCH (09:00)
[2021-06-29] MEDS ORDERED: FUROSEMIDE 40 MG/4 ML VIAL IVP SCH (09:00)
[2021-06-29] MEDS: LACTOBACILLUS RHAMNOSUS GG 1 CAPSULE. PO SCH ×2 (09:37→22:15)
[2021-06-29] MEDS: PANTOPRAZOLE 40 MG TABLET. PO SCH (09:37)
[2021-06-29] MEDS: ASPIRIN CHEWABLE 81 MG TABLET. PO SCH (09:37)
[2021-06-29] MEDS: EZETIMIBE 10 MG TABLET PO SCH (09:37)
[2021-06-29] MEDS: ENOXAPARIN 30 MG/0.3 ML SYRINGE. SQ SCH (09:38)
[2021-06-29] MEDS: BUDESONIDE 0.5 MG/2 ML NEBU NEB SCH ×2 (11:04→20:09)
[2021-06-29] MEDS ORDERED: IPRATRPIUM/ALBUTEROL 0.5/2.5MG 3 ML NEBU. NEB SCH (12:00)
[2021-06-29] MEDS ORDERED: CARVEDILOL 6.25 MG TABLET PO SCH (17:00)
[2021-06-29] MEDS: VANCOMYCIN PER PHARMACY MC PRN (17:25)
[2021-06-29] MEDS ORDERED: IV NORMAL SALINE 50 ML BAG IV ONE (18:45)
[2021-06-29] MEDS ORDERED: DIGOXIN IV 500 MCG/2 ML AMPUL. IV ONE ×2 (19:00→22:00)
[2021-06-29] MEDS ORDERED: IV NORMAL SALINE 500ML 500 ML IV ONE (19:30)
[2021-06-30] VITALS (11 sets, daily range): BP systolic 101–125; BP diastolic 49–78
[2021-06-30] MEDS ORDERED: BENZOCAINE/MENTHOL LOZNGE 18'S BOX. PO PRN (00:15)
--- NOTE | 2021-06-30 02:16 | PN ---
SUBJECTIVE: A 80-year-old male came in. He was markedly fluid overloaded, questionable whether he had heart failure or not. He did have cellulitis and he was in respiratory failure and probably exacerbation of COPD, some infective process. The patient's BNP was 35,000 and elevated lactic acid and had sepsis. The patient has made good progress with IV antibiotic therapy, although blood pressures have been dropping (____). The patient is on 2 liters at 94%. Chest x-rays were unremarkable. There is a small nonocclusive thrombus in the right proximal superficial artery. The patient continues to be monitored carefully in the ICU for this, may take him off all his blood pressure pills as he seems to be ____ out on that. We will continue on the antibiotics for now and make adjustments accordingly on that. ____ have a cellulitis in his leg and will continue to be monitored on these multiple issues there. Cardiology has reviewed with the patient and made some timely suggestions. IMPRESSION: Respiratory failure, sepsis, cellulitis of the leg, possible acute on top of chronic diastolic heart failure, hypotension. Continue on IV antibiotic therapy. Adjust any type of blood pressure medications to help stabilize his blood pressure. Continue in the ICU for close monitoring. GI/TR/HARVINDER DR: GI/angel TID: [id number]
[2021-06-30] MEDS: HYDROcodone/APAP 7.5/325MG 1 TAB TABLET PO PRN ×3 (03:11→20:38)
[2021-06-30] MEDS: IPRATRPIUM/ALBUTEROL 0.5/2.5MG 3 ML NEBU. NEB SCH ×4 (05:09→20:31)
--- NOTE | 2021-06-30 05:49 | EKG ---
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
--- NOTE | 2021-06-30 06:43 | EKG ---
[address] [address] Test Date: 2021-06-29 Test Time: 18:40:50 Pat Name: JACK PINA Department: Room: ICU01 1 Gender: M Band Director: : 1940 Requested By: KVNG FRIAS Order Number: [id number] Reading MD: Measurements Intervals [place] Rate: 156 P: UT: QRS: 90 QRSD: 86 T: -66 QT: 278 QTc: 456 Interpretive Statements IRREGULAR RHYTHM, NO P-WAVE FOUND ST & T ABNORMALITY, CONSIDER ANTERIOR ISCHEMIA OR LEFT VENTRICULAR STRAIN INFEROLATERAL ISCHEMIA OR LEFT VENTRICULAR STRAIN ABNORMAL ECG RI6.01 No previous ECG available for comparison
[2021-06-30] MEDS: MIDODRINE 2.5 MG TABLET PO SCH ×3 (07:00→17:45)
[2021-06-30] MEDS: BUDESONIDE 0.5 MG/2 ML NEBU NEB SCH ×2 (08:57→20:31)
[2021-06-30] MEDS ORDERED: APIXABAN 5 MG TABLET. PO SCH (09:00)
[2021-06-30] MEDS: methylPREDNISolone SOD SUCC PF 40 MG/ML VIAL. IV SCH ×2 (09:03→20:31)
[2021-06-30] MEDS: CALCIUM CARB/VIT D3 500/200 TABLET PO SCH (09:05)
[2021-06-30] MEDS: ASPIRIN CHEWABLE 81 MG TABLET. PO SCH (09:05)
[2021-06-30] MEDS: PANTOPRAZOLE 40 MG TABLET. PO SCH (09:05)
[2021-06-30] MEDS: LACTOBACILLUS RHAMNOSUS GG 1 CAPSULE. PO SCH ×2 (09:06→20:31)
[2021-06-30] MEDS: EZETIMIBE 10 MG TABLET PO SCH (09:08)
[2021-06-30] MEDS: APIXABAN 2.5 MG TABLET PO SCH ×2 (09:08→20:31)
[2021-06-30 09:13] LABS: BASO % 0 % (0-3); EOS % 0 % (0-3); HEMATOCRIT 41.6 % (39.0-53.0); HEMOGLOBIN 13.8 g/dL (13.0-17.5); LYMPH # 0.2 x10^3/uL (1.0-4.8); LYMPH % 3 % (24-48); MEAN CORPUSCULAR HEMOGLOBIN 30 pg (25-35); MEAN CORPUSCULAR HGB CONC 33 g/dL (31-37); MEAN CORPUSCULAR VOLUME 91 fL (79-100); MONO # 0.2 x10^3/uL (0.0-1.1); MONO % 2 % (0-9); NEUT # 7.9 x10^3uL (1.8-7.7); NEUT % 95 % (31-73); PLATELET COUNT 192 x10^3/uL (140-400); RED CELL DISTRIBUTION WIDTH 14.8 % (11.5-14.5); WHITE BLOOD COUNT 8.3 x10^3/uL (4.0-11.0)
[2021-06-30 09:22] LABS: CALCIUM 8.2 mg/dL (8.5-10.1); CREATININE 2.1 mg/dL (0.7-1.3); GFR 30.4; POTASSIUM 5.1 mmol/L (3.5-5.1)
[2021-06-30] MEDS ORDERED: IPRATRPIUM/ALBUTEROL 0.5/2.5MG 3 ML NEBU. NEB SCH (12:00)
[2021-06-30] MEDS: VANCOMYCIN 1 GM in IV NORMAL SALINE 250ML 250 ML IV SCH (17:45)
--- NOTE | 2021-07-01 03:11 | PN ---
SUBJECTIVE: An 80-year-old male in with exacerbation of COPD with pneumonia, also elevated BNP, cellulitis to the right leg, history of post-polio syndrome. The patient is making good progress and placed on breathing treatments. OBJECTIVE: VITAL SIGNS: Blood pressure 125/75, respiratory rate 20, pulse 90, afebrile. He is on 2 liters at 97. GENERAL: The patient is more alert today. LUNGS: Diminished throughout. Poor movement of air, but it markedly improved. CARDIOVASCULAR: Regular sinus rhythm. ABDOMEN: Soft, nontender. EXTREMITIES: No clubbing or cyanosis. There was marked atrophy to the right leg, postpolio syndrome, but any signs of infection has pretty much cleared up there. We are treating him aggressively for his exacerbation of his COPD. He did have some bouts of atrial fibrillation with RVR. He has been started on digitalis and will continue to be monitored accordingly on that as he is paroxysmal on that. IMPRESSION: Acute exacerbation of chronic obstructive pulmonary disease with pneumonia, paroxysmal atrial fibrillation, postpolio syndrome, nonocclusive thrombus in the right proximal superficial femoral vein. Continue with present drug regimen. BARRINGTON DR: Joe TID: [id number]
[2021-07-01 05:00] VITALS: BP 95/49
[2021-07-01] MEDS: IPRATRPIUM/ALBUTEROL 0.5/2.5MG 3 ML NEBU. NEB SCH ×4 (05:10→20:05)
[2021-07-01] MEDS: MIDODRINE 2.5 MG TABLET PO SCH ×3 (05:11→17:44)
[2021-07-01 08:00] VITALS: BP 116/55
[2021-07-01] MEDS: CALCIUM CARB/VIT D3 500/200 TABLET PO SCH (09:27)
[2021-07-01] MEDS: LACTOBACILLUS RHAMNOSUS GG 1 CAPSULE. PO SCH ×2 (09:27→21:34)
[2021-07-01] MEDS: APIXABAN 2.5 MG TABLET PO SCH ×2 (09:27→21:34)
[2021-07-01] MEDS: PANTOPRAZOLE 40 MG TABLET. PO SCH (09:27)
[2021-07-01] MEDS: methylPREDNISolone SOD SUCC PF 40 MG/ML VIAL. IV SCH ×2 (09:27→21:34)
[2021-07-01] MEDS: ASPIRIN CHEWABLE 81 MG TABLET. PO SCH (09:27)
[2021-07-01] MEDS: EZETIMIBE 10 MG TABLET PO SCH (09:27)
[2021-07-01] MEDS: HYDROcodone/APAP 7.5/325MG 1 TAB TABLET PO PRN ×2 (11:15→21:48)
[2021-07-01] MEDS: BUDESONIDE 0.5 MG/2 ML NEBU NEB SCH ×2 (11:28→20:05)
[2021-07-01 16:29] VITALS: BP 133/76
[2021-07-01 19:10] VITALS: BP 130/69
[2021-07-01 22:45] VITALS: BP 127/70
[2021-07-02] MEDS: IPRATRPIUM/ALBUTEROL 0.5/2.5MG 3 ML NEBU. NEB SCH ×4 (04:40→20:16)
--- NOTE | 2021-07-02 05:36 | PN ---
SUBJECTIVE: An 80-year-old male in with the combination of heart failure, cellulitis to his legs, post-polio syndrome. He is making excellent progress overall, trying to get some physical and occupational therapy to get him moving. He believes he needs some type of a scooter, but in any case, the patient is much more alert, breathing much better. OBJECTIVE: VITAL SIGNS: Blood pressure 120/50, respiratory rate 18, pulse 85, afebrile, 2 liters at 92. GENERAL: The patient is alert and oriented. I do not believe he has gone into any other episodes of AFib, the digitalis seems to be holding him accordingly. Otherwise, a frail-appearing gentleman. LUNGS: Diminished, but clear. CARDIOVASCULAR: Regular sinus rhythm. ABDOMEN: Soft, nontender. EXTREMITIES: Legs look markedly improved. No signs of infection. The patient is continued to be monitored carefully, make further evaluation on him as indicated per those results. IMPRESSION AND PLAN: Respiratory failure, exacerbation of chronic obstructive pulmonary disease with bronchitis, sepsis, cellulitis of the legs, possible acute on top of chronic diastolic heart failure, hypotension, marked atrophy of the musculoskeletal system secondary to post-polio syndrome. Continue present drug regimen and will continue on vancomycin and he is on midodrine to bring up his blood pressure somewhat as well as aggressive pulmonary toilet. GI/ALMITA/DELANEY DR: GI/angel TID: [id number]
[2021-07-02 05:45] VITALS: BP 127/70
[2021-07-02] MEDS: ASPIRIN CHEWABLE 81 MG TABLET. PO SCH (08:38)
[2021-07-02] MEDS: CALCIUM CARB/VIT D3 500/200 TABLET PO SCH (08:38)
[2021-07-02] MEDS: EZETIMIBE 10 MG TABLET PO SCH (08:38)
[2021-07-02] MEDS: PANTOPRAZOLE 40 MG TABLET. PO SCH (08:38)
[2021-07-02] MEDS: methylPREDNISolone SOD SUCC PF 40 MG/ML VIAL. IV SCH ×2 (08:38→20:16)
[2021-07-02] MEDS: LACTOBACILLUS RHAMNOSUS GG 1 CAPSULE. PO SCH ×2 (08:38→20:16)
[2021-07-02] MEDS: MIDODRINE 2.5 MG TABLET PO SCH ×3 (08:38→17:01)
[2021-07-02] MEDS: APIXABAN 2.5 MG TABLET PO SCH ×2 (08:38→20:16)
[2021-07-02] MEDS: HYDROcodone/APAP 7.5/325MG 1 TAB TABLET PO PRN (09:20)
[2021-07-02] MEDS: BUDESONIDE 0.5 MG/2 ML NEBU NEB SCH ×2 (10:32→20:16)
[2021-07-02 11:06] VITALS: BP 129/69
[2021-07-02 16:24] VITALS: BP 142/70
[2021-07-02 17:43] LABS: VANC TR 8.9 mcg/mL (10.0-20.0)
[2021-07-02] MEDS: VANCOMYCIN 1 GM in IV NORMAL SALINE 250ML 250 ML IV SCH (18:15)
[2021-07-02 19:36] VITALS: BP 117/65
--- NOTE | 2021-07-02 23:22 | PN ---
SUBJECTIVE: An 80-year-old gentleman came in with acute exacerbation of chronic obstructive pulmonary disease with hypoxia, congestive heart failure, cellulitis to the legs, sepsis. The patient is making good progress now on the floor. Continue with PT, OT with his postpolio weakness as well. His legs are healing up nicely with the IV antibiotic therapy. OBJECTIVE: VITAL SIGNS: Blood pressure 129/69, respirations 20, pulse 77, 2 liters nasal cannula at 93, low-grade temperature of 99. GENERAL: The patient is still receiving vancomycin and Levaquin for his infection. The patient is tapering down on methylprednisolone. He is on Eliquis as well. LUNGS: Clear. CARDIOVASCULAR: Regular sinus rhythm, no more AFib at the present time anyway. ABDOMEN: Soft. He is fairly thin appearing and the patient otherwise continues to be monitored carefully on that regard. EXTREMITIES: The patient's leg still show obviously marked atrophy with his situation, with his postpolio syndrome. IMPRESSION: Therefore, cellulitis of the legs, acute respiratory failure with hypoxia, exacerbation of chronic obstructive pulmonary disease with hypoxia, acute on top of chronic diastolic heart failure, chronic kidney disease stage IIIB, postpolio syndrome. Severe acute respiratory syndrome negative. PLAN: To continue with rehabilitation and make further evaluation on him as indicated. YEISON DR: Joe TID: [id number]
[2021-07-02 23:56] VITALS: BP 136/74
[2021-07-03] MEDS: MIDODRINE 2.5 MG TABLET PO SCH ×3 (06:09→18:00)
[2021-07-03] MEDS: IPRATRPIUM/ALBUTEROL 0.5/2.5MG 3 ML NEBU. NEB SCH ×4 (06:15→20:02)
[2021-07-03 06:24] VITALS: BP 132/73
[2021-07-03] MEDS: ASPIRIN CHEWABLE 81 MG TABLET. PO SCH (08:56)
[2021-07-03] MEDS: PANTOPRAZOLE 40 MG TABLET. PO SCH (08:56)
[2021-07-03] MEDS: LACTOBACILLUS RHAMNOSUS GG 1 CAPSULE. PO SCH ×2 (08:56→19:21)
[2021-07-03] MEDS: methylPREDNISolone SOD SUCC PF 40 MG/ML VIAL. IV SCH ×2 (08:56→19:21)
[2021-07-03] MEDS: EZETIMIBE 10 MG TABLET PO SCH (08:56)
[2021-07-03] MEDS: CALCIUM CARB/VIT D3 500/200 TABLET PO SCH (08:56)
[2021-07-03] MEDS: APIXABAN 2.5 MG TABLET PO SCH ×2 (08:57→19:21)
[2021-07-03] MEDS: HYDROcodone/APAP 7.5/325MG 1 TAB TABLET PO PRN ×2 (09:07→19:21)
[2021-07-03] MEDS: BUDESONIDE 0.5 MG/2 ML NEBU NEB SCH ×2 (09:12→20:02)
[2021-07-03 11:08] VITALS: BP 113/62
[2021-07-03 15:35] VITALS: BP 114/59
[2021-07-03 19:28] VITALS: BP 127/58
[2021-07-04] VITALS (8 sets, daily range): BP systolic 95–118; BP diastolic 58–83
--- NOTE | 2021-07-04 03:43 | PN ---
SUBJECTIVE: The patient is an 80-year-old male in with acute respiratory failure along with his chronic lung disease, possible cellulitis to his legs, possible heart failure, doing somewhat better. The patient is making progress. Legs less inflamed. Still receiving PT, OT to help regain his strength. OBJECTIVE: VITAL SIGNS: Blood pressure 113/62, respiratory rate 20 and pulse 78, afebrile, 2 liters 96. GENERAL: The patient alert and oriented. LUNGS: Diminished throughout, but basically clear. CARDIOVASCULAR: Stable. ABDOMEN: Soft, diffuse tenderness. No rebound or guarding. Positive bowel sounds, no hepatosplenomegaly was noted. EXTREMITIES: No clubbing, cyanosis, nor edema. Legs show marked atrophy from his postpolio syndrome. Overall, the patient is making good progress overall. IMPRESSION: Acute respiratory failure, exacerbation of chronic obstructive pulmonary disease with bronchitis, sepsis, cellulitis of the legs, acute on top of chronic diastolic heart failure, hypotension, marked atrophy to the musculoskeletal system lower extremity secondary to his postpolio syndrome. PLAN: Continue on present drug regimen as it is right now. TERRI/PAWAN DR: Joe TID: [id number]
[2021-07-04] MEDS: MIDODRINE 2.5 MG TABLET PO SCH ×3 (05:26→18:00)
[2021-07-04] MEDS ORDERED: DIGOXIN IV 500 MCG/2 ML AMPUL. IV ONE ×3 (06:30→12:00)
[2021-07-04] MEDS: IPRATRPIUM/ALBUTEROL 0.5/2.5MG 3 ML NEBU. NEB SCH ×4 (06:36→21:11)
--- NOTE | 2021-07-04 06:37 | EKG ---
[address] [address] Test Date: 2021-07-04 Test Time: 06:30:00 Pat Name: JACK PINA Department: Room: 115 A Gender: M Courseware Developer: : 1940 Requested By: KVNG FRIAS Order Number: [id number] Reading MD: Measurements Intervals [place] Rate: 150 P: PA: QRS: 78 QRSD: 88 T: -84 QT: 242 QTc: 384 Interpretive Statements ACCELERATED JUNCTIONAL RHYTHM AXIS NORMAL CONSIDERING AGE ST ABNORMALITY, POSSIBLE INFERIOR SUBENDOCARDIAL INJURY ABNORMAL ECG RI6.01 No previous ECG available for comparison
[2021-07-04] MEDS: LACTOBACILLUS RHAMNOSUS GG 1 CAPSULE. PO SCH ×2 (08:17→22:16)
[2021-07-04] MEDS: ASPIRIN CHEWABLE 81 MG TABLET. PO SCH (08:17)
[2021-07-04] MEDS: EZETIMIBE 10 MG TABLET PO SCH (08:17)
[2021-07-04] MEDS: methylPREDNISolone SOD SUCC PF 40 MG/ML VIAL. IV SCH ×2 (08:17→22:16)
[2021-07-04] MEDS: HYDROcodone/APAP 7.5/325MG 1 TAB TABLET PO PRN (08:18)
[2021-07-04] MEDS: PANTOPRAZOLE 40 MG TABLET. PO SCH (08:18)
[2021-07-04] MEDS: APIXABAN 2.5 MG TABLET PO SCH ×2 (08:18→22:16)
[2021-07-04] MEDS: CALCIUM CARB/VIT D3 500/200 TABLET PO SCH (08:18)
--- NOTE | 2021-07-04 08:18 | PDOC ---
DEEPTHI SALMERON GTA 07/04/21 0818: CARDIO Progress Notes Date & Time Date of Service DATE: 07/04/21 TIME: 08:13 Time of Evaluation 08:13 Subjective Notes No chest pain, palpitations, shortness of breath. Is feeling well. Vitals Vitals Vital Signs Date Time Temp Pulse Resp B/P (MAP) Pulse Ox O2 Delivery O2 Flow Rate FiO2 07/04/21 07:09 150 95/62 07/04/21 05:36 97.7 20 2 Nasal Cannula 30.0 Weight Weight [ ] Input and Output I.O. Intake and Output 07/04/21 07:00 Intake Total 1280 ml Output Total 800 ml Balance 480 ml Intake Oral 1280 ml Output Urine Total 800 ml # Bowel Movements 2 Laboratory Labs Laboratory Tests Test 07/02/21 17:23 Vancomycin Level Trough 8.9 mcg/mL (10.0-20.0) Vancomycin Last Dose Date 06/30/2021 Vancomycin Last Dose Time 1800 Microbiology Micro Microbiology 06/27/21 Blood Culture - Final, Complete NO GROWTH AFTER 5 DAYS... Physical Exams HEENT: Neck Supple W Full Motion Chest: Symmetric Lungs: Other (diminished bases) Heart: irregularly irregular (aflutter with RVR, rate 140) Extremities: Other (trace edema to left foot) Neurology: alert, oriented Assessment Assessment 1. Acute on chronic respiratory failure with AE COPD and CHF. resolved 2. Acute on chronic diastolic CHF; Echo 08/21 with LVEF 60%. s/p IV Lasix. appears compensated 3. TK on CKD, hyperkalemia; Cr 1.48 (07/24) per review of [facility] records. 4. Elevated troponin; peak 0.384. Most probably type II, demand ischemia. CP free 5. CAD s/p CABG [address] Jayden MONTGOMERY. MPI 2012 without evidence of ischemia 6. Leukocytosis, lactic acidosis, LLE cellulitis. antibiotics as per IM. 7. Atrial flutter; new finding. 2:1 flutter with RVR this morning. S/p IV Digoxin. Remain with RVR 7. Hypertension; low end 8. Hyperlipidemia; on Zetia. intolerant to statins 11. PAD s/p INDUSTRIAL REGISTERED NURSE/stent 12. Abdominal aortic aneurysm s/p TEVAR. converted to open repair in 2008 Recommendations Metoprolol IV x1 now. May repeat IV Dig if her remains in RVR If blood pressure remains low end and HR not responsive to dig/metoprolol, recommend starting amiodarone gtt. Continue Eliquis therapy given DVT and a-flutter TSH level Secondary prevention Outpatient ischemic evaluation- will defer to primary machine bender, KELLEY Max MD 07/04/21 3044: CARDIO Progress Notes Assessment Assessment Patient seen and examined. Agree with KILN FURNITURE CASTER's assessment and plan Atrial flutter with RVR, new onset - agree with digoxin for rate control BP borderline low and hence cannot start CZM gtt - consider amiodarone gtt if HR still elevated CAD and PAD clinically stable Continue eliquis and plan outpatient cardioversion with primary machine bender DEEPTHI SALMERON APRN Jul 04, 2021 08:18 KELLEY SERRA MD Jul 04, 2021 18:54
[2021-07-04] MEDS ORDERED: METOPROLOL TARTRATE 5 MG/5 ML VIAL. IV ONE (09:00)
[2021-07-04] MEDS: BUDESONIDE 0.5 MG/2 ML NEBU NEB SCH ×2 (11:22→21:11)
[2021-07-04 13:16] LABS: CREATININE 1.3 mg/dL (0.7-1.3); GFR 52.9; MAGNESIUM 2.2 mg/dL (1.8-2.4)
[2021-07-04 13:29] LABS: POTASSIUM 5.2 mmol/L (3.5-5.1)
[2021-07-04 13:43] LABS: BASO % 0 % (0-3); EOS % 0 % (0-3); HEMATOCRIT 43.4 % (39.0-53.0); HEMOGLOBIN 13.9 g/dL (13.0-17.5); LYMPH # 0.1 x10^3/uL (1.0-4.8); LYMPH % 1 % (24-48); MEAN CORPUSCULAR HEMOGLOBIN 29 pg (25-35); MEAN CORPUSCULAR HGB CONC 32 g/dL (31-37); MEAN CORPUSCULAR VOLUME 91 fL (79-100); MONO # 0.3 x10^3/uL (0.0-1.1); MONO % 3 % (0-9); NEUT # 12.9 x10^3uL (1.8-7.7); NEUT % 97 % (31-73); PLATELET COUNT 197 x10^3/uL (140-400); RED BLOOD COUNT 4.77 x10^6/uL (4.30-5.70); RED CELL DISTRIBUTION WIDTH 15.1 % (11.5-14.5); WHITE BLOOD COUNT 13.4 x10^3/uL (4.0-11.0)
[2021-07-04 14:04] LABS: DIG 7.1 ng/dL (0.9-2.0)
[2021-07-04 17:46] LABS: VANC TR 7.8 mcg/mL (10.0-20.0)
[2021-07-04] MEDS: VANCOMYCIN PER PHARMACY MC PRN (18:54)
[2021-07-04] MEDS ORDERED: AMIODARONE 150 MG in IV DEXTROSE 5% 100 ML IVP ONE (21:30)
[2021-07-04] MEDS: VANCOMYCIN 1 GM in IV NORMAL SALINE 250ML 250 ML IV SCH (22:16)
[2021-07-04] MEDS: AMIODARONE 450 MG in IV DEXTROSE 5% 250 ML IV PRN (22:47)
[2021-07-05] VITALS (23 sets, daily range): BP systolic 103–147; BP diastolic 58–92
--- NOTE | 2021-07-05 01:02 | PN ---
SUBJECTIVE: An 80-year-old male. The patient came in acute respiratory failure, had been doing reasonably well until early this morning when he went into atrial fibrillation with RVR, unresponsive to Lanoxin and digitalis IV. The patient continues to have problems with rates of 130-150. Blood pressure 105/73, respiratory rate 20. He is afebrile, 3 liters at 96. The patient seems to be doing well otherwise. He is alert and oriented. Speech fluent, spontaneous, appropriate, and is recognizable to the situation at hand. The patient's labs look basically good at 145.2. BUN and creatinine 42 and 1.3, markedly improved. Magnesium was good. Cardiology is to see the patient and make further evaluation on him as indicated. OBJECTIVE: RESPIRATORY: Otherwise lungs are diminished, but clear. CARDIOVASCULAR: Regular rate and rhythm. ABDOMEN: Soft, nontender. EXTREMITIES: No clubbing, cyanosis, nor edema. NEUROLOGIC: Alert and oriented. ASSESSMENT AND PLAN: Legs marked atrophy secondary to post-polio syndrome and will continue to be monitored on that as well as his atrial fibrillation. May need an amiodarone drip whenever Cardiology would suggest. GI/GRACE DR: Joe TID: [id number]
[2021-07-05] MEDS: IPRATRPIUM/ALBUTEROL 0.5/2.5MG 3 ML NEBU. NEB SCH ×4 (04:53→19:38)
[2021-07-05] MEDS: MIDODRINE 2.5 MG TABLET PO SCH ×3 (06:55→17:37)
[2021-07-05] MEDS: AMIODARONE 450 MG in IV DEXTROSE 5% 250 ML IV PRN (06:55)
--- NOTE | 2021-07-05 08:29 | PDOC ---
DEEPTHI SALMERON CUSTOMER RETENTION REPRESENTATIVE 07/05/21 0829: CARDIO Progress Notes Date & Time Date of Service DATE: 07/05/21 TIME: 08:28 Time of Evaluation 08:28 Subjective Notes No chest pain, palpitations, SOA Vitals Vitals Vital Signs Date Time Temp Pulse Resp B/P (MAP) Pulse Ox O2 Delivery O2 Flow Rate FiO2 07/05/21 07:58 97.7 07/05/21 06:55 82 113/60 07/05/21 06:00 16 98 Nasal Cannula 3.0 Weight Weight [ ] Input and Output I.O. Intake and Output 07/05/21 07:00 Intake Total 1033 ml Output Total 1000 ml Balance 33 ml Intake Oral 680 ml IV Total 353 ml Output Urine Total 1000 ml # Bowel Movements 2 Laboratory Labs Laboratory Tests Test 07/04/21 12:59 07/04/21 17:28 White Blood Count 13.4 x10^3/uL (4.0-11.0) Red Blood Count 4.77 x10^6/uL (4.30-5.70) Hemoglobin 13.9 g/dL (13.0-17.5) Hematocrit 43.4 % (39.0-53.0) Mean Corpuscular Volume 91 fL (79-100) Mean Corpuscular Hemoglobin 29 pg (25-35) Mean Corpuscular Hemoglobin Concent 32 g/dL (31-37) Red Cell Distribution Width 15.1 % (11.5-14.5) Platelet Count 197 x10^3/uL (140-400) Neutrophils (%) (Auto) 97 % (31-73) Lymphocytes (%) (Auto) 1 % (24-48) Monocytes (%) (Auto) 3 % (0-9) Eosinophils (%) (Auto) 0 % (0-3) Basophils (%) (Auto) 0 % (0-3) Neutrophils # (Auto) 12.9 x10^3uL (1.8-7.7) Lymphocytes # (Auto) 0.1 x10^3/uL (1.0-4.8) Monocytes # (Auto) 0.3 x10^3/uL (0.0-1.1) Eosinophils # (Auto) 0.0 x10^3/uL (0.0-0.7) Basophils # (Auto) 0.0 x10^3/uL (0.0-0.2) Sodium Level 140 mmol/L (136-145) Potassium Level 5.2 mmol/L (3.5-5.1) Chloride Level 105 mmol/L (98-107) Carbon Dioxide Level 31 mmol/L (21-32) Anion Gap 4 (6-14) Blood Urea Nitrogen 42 mg/dL (8-26) Creatinine 1.3 mg/dL (0.7-1.3) Estimated GFR (Cockcroft-Gault) 52.9 Glucose Level 148 mg/dL (70-99) Calcium Level 8.0 mg/dL (8.5-10.1) Magnesium Level 2.2 mg/dL (1.8-2.4) Digoxin Level 7.1 ng/dL (0.9-2.0) Digoxin Last Dose Date 07/04/21 Digoxin Last Dose Time 1030 Vancomycin Level Trough 7.8 mcg/mL (10.0-20.0) Vancomycin Last Dose Date 07/02/2021 Vancomycin Last Dose Time 1800 Microbiology Micro Microbiology 06/27/21 Blood Culture - Final, Complete NO GROWTH AFTER 5 DAYS... Physical Exams HEENT: Neck Supple W Full Motion Chest: Symmetric Lungs: Other (diminished bases) Heart: irregularly irregular (aflutter with RVR, rate controlled ) Abdomen: Soft N/T Extremities: Other (trace edema to left foot) Neurology: alert, oriented, follow commands Assessment Assessment 1. Acute on chronic respiratory failure with AE COPD and CHF. resolved 2. Acute on chronic diastolic CHF; Echo 08/21 with LVEF 60%. s/p IV Lasix. appears compensated 3. TK on CKD, hyperkalemia; Cr 1.48 (07/24) per review of [facility] records. 4. Elevated troponin; peak 0.384. Most probably type II, demand ischemia. CP free 5. CAD s/p CABG [address] Jayden MONTGOMERY. MPI 2012 without evidence of ischemia 6. Leukocytosis, lactic acidosis, LLE cellulitis. antibiotics as per IM. 7. Atrial flutter; new finding. remains in flutter. Rate now controlled on Amiodarone gtt. D/p IV Dig. Dig level 7 7. Hypertension; low end 8. Hyperlipidemia; on Zetia. intolerant to statins 11. PAD s/p MANAGER MARKET INTELLIGENCE/stent 12. Abdominal aortic aneurysm s/p TEVAR. converted to open repair in 2008 Recommendations Discontinue IV Dig Continue Amiodarone gtt. Will convert to oral follow 24hr loading dose Add low-dose metoprolol for rate control May repeat IV Dig if her remains in RVR Continue Eliquis therapy for stroke prophylaxis Secondary prevention Outpatient cardioversoin and ischemic evaluation- will defer to primary dry cleaning attendant, DIANNE Pinto MD 07/05/21 1747: CARDIO Progress Notes Plan Plan Pt. seen and examined. Agree with above RAILWAY SIGNAL OPERATOR note. Supportive care. DEEPTHI SALMERON APRN Jul 05, 2021 08:29 DIANNE RUIZ MD Jul 05, 2021 17:47
[2021-07-05] MEDS: DIGOXIN IV 500 MCG/2 ML AMPUL. IV SCH (09:00)
[2021-07-05] MEDS: HYDROcodone/APAP 7.5/325MG 1 TAB TABLET PO PRN (09:23)
[2021-07-05] MEDS: ASPIRIN CHEWABLE 81 MG TABLET. PO SCH (09:23)
[2021-07-05] MEDS: PANTOPRAZOLE 40 MG TABLET. PO SCH (09:23)
[2021-07-05] MEDS: EZETIMIBE 10 MG TABLET PO SCH (09:23)
[2021-07-05] MEDS: APIXABAN 2.5 MG TABLET PO SCH ×2 (09:23→20:54)
[2021-07-05] MEDS: CALCIUM CARB/VIT D3 500/200 TABLET PO SCH (09:23)
[2021-07-05] MEDS: methylPREDNISolone SOD SUCC PF 40 MG/ML VIAL. IV SCH ×2 (09:24→20:55)
[2021-07-05] MEDS: LACTOBACILLUS RHAMNOSUS GG 1 CAPSULE. PO SCH ×2 (09:24→21:00)
[2021-07-05] MEDS: BUDESONIDE 0.5 MG/2 ML NEBU NEB SCH ×2 (11:10→19:38)
[2021-07-05] MEDS: VANCOMYCIN 1 GM in IV NORMAL SALINE 250ML 250 ML IV SCH (19:38)
[2021-07-05] MEDS: AMIODARONE HCL 200 MG TABLET. PO SCH (20:54)
[2021-07-05] MEDS: METOPROLOL TART IMMED RELEASE 25 MG TABLET. PO SCH (20:55)
[2021-07-06] VITALS (17 sets, daily range): BP systolic 101–140; BP diastolic 52–78
[2021-07-06] MEDS: IPRATRPIUM/ALBUTEROL 0.5/2.5MG 3 ML NEBU. NEB SCH ×4 (06:05→20:00)
--- NOTE | 2021-07-06 08:23 | PDOC ---
DEEPTHI SALMERON CYDNEY 07/06/21 0823: CARDIO Progress Notes Date & Time Date of Service DATE: 07/06/21 TIME: 08:22 Time of Evaluation 08:22 Subjective Notes No chest pain, palpitations, dizziness Vitals Vitals Vital Signs Date Time Temp Pulse Resp B/P (MAP) Pulse Ox O2 Delivery O2 Flow Rate FiO2 07/06/21 06:06 97.9 102 20 123/57 (79) 98 Nasal Cannula 2.0 Weight Weight [ ] Input and Output I.O. Intake and Output 07/06/21 07:00 Intake Total 780 ml Output Total 651 ml Balance 129 ml Intake Oral 780 ml Output Urine Total 650 ml Stool Total 1 ml Laboratory Labs Laboratory Tests Test 07/04/21 12:59 07/04/21 14:06 07/04/21 17:28 White Blood Count 13.4 x10^3/uL (4.0-11.0) Red Blood Count 4.77 x10^6/uL (4.30-5.70) Hemoglobin 13.9 g/dL (13.0-17.5) Hematocrit 43.4 % (39.0-53.0) Mean Corpuscular Volume 91 fL (79-100) Mean Corpuscular Hemoglobin 29 pg (25-35) Mean Corpuscular Hemoglobin Concent 32 g/dL (31-37) Red Cell Distribution Width 15.1 % (11.5-14.5) Platelet Count 197 x10^3/uL (140-400) Neutrophils (%) (Auto) 97 % (31-73) Lymphocytes (%) (Auto) 1 % (24-48) Monocytes (%) (Auto) 3 % (0-9) Eosinophils (%) (Auto) 0 % (0-3) Basophils (%) (Auto) 0 % (0-3) Neutrophils # (Auto) 12.9 x10^3uL (1.8-7.7) Lymphocytes # (Auto) 0.1 x10^3/uL (1.0-4.8) Monocytes # (Auto) 0.3 x10^3/uL (0.0-1.1) Eosinophils # (Auto) 0.0 x10^3/uL (0.0-0.7) Basophils # (Auto) 0.0 x10^3/uL (0.0-0.2) Sodium Level 140 mmol/L (136-145) Potassium Level 5.2 mmol/L (3.5-5.1) Chloride Level 105 mmol/L (98-107) Carbon Dioxide Level 31 mmol/L (21-32) Anion Gap 4 (6-14) Blood Urea Nitrogen 42 mg/dL (8-26) Creatinine 1.3 mg/dL (0.7-1.3) Estimated GFR (Cockcroft-Gault) 52.9 Glucose Level 148 mg/dL (70-99) Calcium Level 8.0 mg/dL (8.5-10.1) Magnesium Level 2.2 mg/dL (1.8-2.4) Digoxin Level 7.1 ng/dL (0.9-2.0) Digoxin Last Dose Date 07/04/21 Digoxin Last Dose Time 1030 Thyroid Stimulating Hormone (TSH) 0.943 uIU/mL (0.358-3.740) Vancomycin Level Trough 7.8 mcg/mL (10.0-20.0) Vancomycin Last Dose Date 07/02/2021 Vancomycin Last Dose Time 1800 Microbiology Micro Microbiology 06/27/21 Blood Culture - Final, Complete NO GROWTH AFTER 5 DAYS... Physical Exams HEENT: Neck Supple W Full Motion Chest: Symmetric Lungs: Other (diminished bases) Heart: irregularly irregular (aflutter with RVR, rate controlled overall ) Abdomen: Soft N/T Extremities: Other (trace edema to left foot) Neurology: alert, oriented, follow commands Assessment Assessment 1. Acute on chronic respiratory failure with AE COPD and CHF. resolved 2. Acute on chronic diastolic CHF; Echo 08/21 with LVEF 60%. s/p IV Lasix. appears compensated . Echo showed LVEF 55%. PAP 77 mmHG 3. TK on CKD, hyperkalemia; Cr 1.48 (07/24) per review of [facility] records. resolved 4. Elevated troponin; peak 0.384. Most probably type II, demand ischemia. CP free 5. CAD s/p CABG [address] Jayden MONTGOMERY. MPI 2012 without evidence of ischemia 6. Leukocytosis, lactic acidosis, LLE cellulitis; improved 7. Atrial flutter; new finding. remains in flutter, rate controlled overall 7. Hypertension; low end 8. Hyperlipidemia; on Zetia. intolerant to statins 11. PAD s/p POCKET MACHINE OPERATOR/stent 12. Abdominal aortic aneurysm s/p TEVAR. converted to open repair in 2008 Recommendations Hold Dig; recheck Dig level Continue amiodarone therapy Low-dose metoprolol for rate control; will increase to 25mg BID for better rate control Eliquis for stroke prophylaxis Secondary prevention Outpatient cardioversoin and ischemic evaluation- will defer to primary professional system administrator, DIANNE Pinto MD 07/06/21 1710: CARDIO Progress Notes Plan Plan Pt. seen and examined. Agree with above BRASS AND WIND INSTRUMENT REPAIRER note. outpt CVN. Thanks. DEEPTHI SALMERON APRN Jul 06, 2021 08:23 DIANNE RUIZ MD Jul 06, 2021 17:10
[2021-07-06] MEDS: HYDROcodone/APAP 7.5/325MG 1 TAB TABLET PO PRN ×2 (08:37→17:08)
[2021-07-06] MEDS: DIGOXIN IV 500 MCG/2 ML AMPUL. IV SCH (09:00)
[2021-07-06] MEDS: methylPREDNISolone SOD SUCC PF 40 MG/ML VIAL. IV SCH ×2 (09:59→20:48)
[2021-07-06] MEDS: AMIODARONE HCL 200 MG TABLET. PO SCH ×2 (10:00→20:50)
[2021-07-06] MEDS: LACTOBACILLUS RHAMNOSUS GG 1 CAPSULE. PO SCH ×2 (10:00→20:48)
[2021-07-06] MEDS: METOPROLOL TART IMMED RELEASE 25 MG TABLET. PO SCH ×2 (10:00→20:50)
[2021-07-06] MEDS: PANTOPRAZOLE 40 MG TABLET. PO SCH (10:00)
[2021-07-06] MEDS: EZETIMIBE 10 MG TABLET PO SCH (10:00)
[2021-07-06] MEDS: ASPIRIN CHEWABLE 81 MG TABLET. PO SCH (10:00)
[2021-07-06] MEDS: CALCIUM CARB/VIT D3 500/200 TABLET PO SCH (10:01)
[2021-07-06] MEDS: MIDODRINE 2.5 MG TABLET PO SCH ×3 (10:01→17:08)
[2021-07-06] MEDS: APIXABAN 2.5 MG TABLET PO SCH ×2 (10:01→20:50)
[2021-07-06] MEDS: BUDESONIDE 0.5 MG/2 ML NEBU NEB SCH ×2 (10:09→20:00)
[2021-07-06 10:57] LABS: DIG 2.7 ng/dL (0.9-2.0)
--- NOTE | 2021-07-06 12:24 | PN ---
SUBJECTIVE: The patient came in initially with cellulitis to his legs, acute respiratory failure and then here in the last day or so developed atrial fibrillation, rapid ventricular response, unresponsive to beta-blockers as well as high-dose Lanoxin. The patient has been converted over into the ICU for an amiodarone drip to adjust his heart rate, which on last evaluation was bringing it under control. OBJECTIVE: VITAL SIGNS: Blood pressure , respiratory rate 77, pulse 78, afebrile. GENERAL: The patient is alert and oriented. LUNGS: Diminished, but clear. CARDIOVASCULAR: Irregular rate and rhythm, but under much better control, less than 100. ABDOMEN: Soft, nontender. No rebound or guarding. Positive bowel sounds, no hepatosplenomegaly noted. EXTREMITIES: The patient's legs still had marked atrophy, but no signs of infection there. IMPRESSION: Acute on chronic respiratory failure with exacerbation of COPD with bronchitis, pneumonitis; acute on chronic diastolic congestive heart failure, compensated; hyperkalemia; elevated troponin levels; atrial flutter with rapid ventricular rate, amiodarone, IV digoxin. Essential hypertension, hyperlipidemia, peripheral arterial disease, SEWAGE PLANT OPERATOR stent, abdominal aortic aneurysm. Surgical repair with TAVR, converted to open repair in 2008. Post-polio syndrome with marked atrophy to the musculoskeletal system, especially of the lower extremities. PLAN: Continue with present regimen and convert over to oral medications eventually will convert him over and then bring in further evaluation as indicated. NANCY/EDIN DR: Joe TID: [id number]
[2021-07-06 18:59] LABS: VANC TR 14.8 mcg/mL (10.0-20.0)
[2021-07-06] MEDS: VANCOMYCIN 1 GM in IV NORMAL SALINE 250ML 250 ML IV SCH (20:33)
[2021-07-07] VITALS (21 sets, daily range): BP systolic 101–137; BP diastolic 55–89
--- NOTE | 2021-07-07 04:24 | PN ---
SUBJECTIVE: This is an 80-year-old male who came in for variety of reasons. Presently, he is in for AFib with RVR, unresponsive to digitalis, metoprolol and Cardizem. The patient has been placed on an amiodarone drip and is being monitored carefully here in the ICU, be converted over to oral medication by Dr. Carmen, his noted commercial sales director. OBJECTIVE: GENERAL: Otherwise, the patient is in good spirits. Says he is feeling really pretty good overall. Heart rate has come down from the 130s into the low 100s. VITAL SIGNS: Blood pressure 123/57, respiratory rate 18 and a pulse of 100. The patient has been on nasal cannula 2 liters and may be switched over to BiPAP (NC). LUNGS: Clear. CARDIOVASCULAR: ____ regular rhythm. ABDOMEN: Soft, nontender. EXTREMITIES: No clubbing, cyanosis, marked atrophy to the musculoskeletal system consistent with his postpolio syndrome. IMPRESSION: Atrial fibrillation with rapid ventricular response, acute exacerbation of chronic obstructive pulmonary disease secondary to pneumonia, nonocclusive thrombosis of the right proximal superficial femoral vein, postpolio syndrome, cellulitis to the legs, slight elevation of troponin, hyperkalemia. PLAN: Continue to monitor accordingly. GI/ALMITA/PAWAN DR: GI/angel TID: [id number]
[2021-07-07] MEDS: IPRATRPIUM/ALBUTEROL 0.5/2.5MG 3 ML NEBU. NEB SCH ×4 (05:53→20:01)
[2021-07-07 06:15] LABS: CALCIUM 8.2 mg/dL (8.5-10.1); CREATININE 1.5 mg/dL (0.7-1.3); GFR 44.8; POTASSIUM 5.1 mmol/L (3.5-5.1)
[2021-07-07] MEDS: MIDODRINE 2.5 MG TABLET PO SCH ×3 (07:00→17:52)
[2021-07-07] MEDS: LACTOBACILLUS RHAMNOSUS GG 1 CAPSULE. PO SCH ×2 (07:59→21:08)
[2021-07-07] MEDS: CALCIUM CARB/VIT D3 500/200 TABLET PO SCH (07:59)
[2021-07-07] MEDS: EZETIMIBE 10 MG TABLET PO SCH (07:59)
[2021-07-07] MEDS: METOPROLOL TART IMMED RELEASE 25 MG TABLET. PO SCH ×2 (08:00→21:09)
[2021-07-07] MEDS: AMIODARONE HCL 200 MG TABLET. PO SCH ×2 (08:00→21:08)
[2021-07-07] MEDS: BUDESONIDE 0.5 MG/2 ML NEBU NEB SCH ×3 (08:00→20:01)
[2021-07-07] MEDS: ASPIRIN CHEWABLE 81 MG TABLET. PO SCH (08:00)
[2021-07-07] MEDS: methylPREDNISolone SOD SUCC PF 40 MG/ML VIAL. IV SCH ×2 (08:01→21:09)
[2021-07-07] MEDS: APIXABAN 2.5 MG TABLET PO SCH ×2 (08:01→21:09)
[2021-07-07] MEDS: PANTOPRAZOLE 40 MG TABLET. PO SCH (08:01)
[2021-07-07] MEDS: HYDROcodone/APAP 7.5/325MG 1 TAB TABLET PO PRN (12:42)
[2021-07-07] MEDS: VANCOMYCIN 1 GM in IV NORMAL SALINE 250ML 250 ML IV SCH (18:29)
[2021-07-08] VITALS (12 sets, daily range): BP systolic 95–142; BP diastolic 50–73
--- NOTE | 2021-07-08 04:38 | PN ---
SUBJECTIVE: An 80-year-old gentleman came in with a variety of problems including acute respiratory failure, cellulitis to the legs and heart failure. The patient most recently had atrial fibrillation with rapid ventricular response, placed on an amiodarone drip and has made relatively good progress with that. He has been converted over to oral medications and continues to show fairly good response there. OBJECTIVE: VITAL SIGNS: Blood pressure 130/60, respiratory rate 18, pulse 110, afebrile. GENERAL: The patient is alert, oriented. LUNGS: Diminished, but clear. CARDIOVASCULAR: Irregularly irregular rhythm. ABDOMEN: Soft, nontender. 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 We will continue with PT, OT and have him ready for discharge here soon. IMPRESSION: Therefore atrial fibrillation with rapid ventricular response, cellulitis to the legs, acute respiratory failure, post-polio syndrome. PLAN: As above. GI/TR/DELANEY DR: GI/angel TID: [id number]
[2021-07-08] MEDS: IPRATRPIUM/ALBUTEROL 0.5/2.5MG 3 ML NEBU. NEB SCH ×2 (05:33→09:13)
[2021-07-08] MEDS: MIDODRINE 2.5 MG TABLET PO SCH (06:32)
[2021-07-08] MEDS: PANTOPRAZOLE 40 MG TABLET. PO SCH (07:30)
[2021-07-08] MEDS: methylPREDNISolone SOD SUCC PF 40 MG/ML VIAL. IV SCH (07:30)
[2021-07-08] MEDS: CALCIUM CARB/VIT D3 500/200 TABLET PO SCH (07:30)
[2021-07-08] MEDS: EZETIMIBE 10 MG TABLET PO SCH (07:30)
[2021-07-08] MEDS: LACTOBACILLUS RHAMNOSUS GG 1 CAPSULE. PO SCH (07:30)
[2021-07-08] MEDS: ASPIRIN CHEWABLE 81 MG TABLET. PO SCH (07:30)
[2021-07-08] MEDS: METOPROLOL TART IMMED RELEASE 25 MG TABLET. PO SCH (07:31)
[2021-07-08] MEDS: AMIODARONE HCL 200 MG TABLET. PO SCH (07:31)
[2021-07-08] MEDS: APIXABAN 2.5 MG TABLET PO SCH (07:32)
[2021-07-08] MEDS: HYDROcodone/APAP 7.5/325MG 1 TAB TABLET PO PRN (07:35)
[2021-07-08] MEDS: BUDESONIDE 0.5 MG/2 ML NEBU NEB SCH (09:13)
--- NOTE | 2021-07-13 15:09 | DS ---
DATE OF DISCHARGE: 07/08/2021 HOSPITAL COURSE: An 80-year-old male initially came in with increased shortness of breath, exacerbation of the COPD. He was in respiratory failure with oxygen down to 60%, temperature of 100. His BNP was greater than 35,000. The patient was treated for his exacerbation of COPD with bronchitis as well as his heart failure, seen by Cardiology, also noted to have problems with cellulitis to his legs. The patient made relatively good progress; however, toward the end of his stay, the patient began to experience atrial fibrillation with rapid ventricular response and as a result of this, he was continued to be in the hospital, transferred to the unit for amiodarone treatment and then later switched over once his heart rate was under control. He was switched over to amiodarone orally 200 mg b.i.d. He had been on vancomycin, metoprolol and Eliquis as well. The patient made good progress and was discharged home. IMPRESSION: Therefore, acute respiratory failure, acute exacerbation of chronic obstructive pulmonary disease with bronchitis, cellulitis to his legs, post-polio syndrome as well as atrial fibrillation with rapid ventricular response, hyperglycemia, chronic kidney disease stage IV. SARS negative. The patient will be monitored carefully. We will follow him up as an outpatient. See MRAD and continue with PT, OT as an outpatient. GI/KRISTIN DR: Joe TID: [id number]
== END 2021-07-08 11:45 | disposition home or self-care (01) | DRG 871 ==
LOC: ER 14:32 → ICU 18:57 → 1 SOUTH 07-01 16:26 → ICU 07-04 19:21
PROVIDERS: ADMIT Family Medicine; ATTEND Family Medicine
PROC: 5A09357 Assistance with Respiratory Ventilation, Less than 24 Consecutive Hours, Continuous Positive Airway Pressure (ICD-10-PCS; principal; 2021-06-27)
PROC: 5A09357 Assistance with Respiratory Ventilation, Less than 24 Consecutive Hours, Continuous Positive Airway Pressure (ICD-10-PCS; 2021-07-06)
DX: A41.9 Sepsis, unspecified organism (principal); I50.33 Acute on chronic diastolic (congestive) heart failure; J96.21 Acute and chronic respiratory failure with hypoxia; J18.9 Pneumonia, unspecified organism; I13.0 Hypertensive heart and chronic kidney disease with heart failure and stage 1 through stage 4 chronic kidney disease, or unspecified chronic kidney disease; I48.92 Unspecified atrial flutter; L03.115 Cellulitis of right lower limb; L03.116 Cellulitis of left lower limb; N17.9 Acute kidney failure, unspecified; N18.4 Chronic kidney disease, stage 4 (severe); Z66 Do not resuscitate; Z20.822 Contact with and (suspected) exposure to COVID-19; E78.5 Hyperlipidemia, unspecified; E87.5 Hyperkalemia; G14 Postpolio syndrome; G89.29 Other chronic pain; I25.10 Atherosclerotic heart disease of native coronary artery without angina pectoris; I48.0 Paroxysmal atrial fibrillation; I73.9 Peripheral vascular disease, unspecified; J43.9 Emphysema, unspecified; M19.90 Unspecified osteoarthritis, unspecified site; F41.9 Anxiety disorder, unspecified; K21.9 Gastro-esophageal reflux disease without esophagitis; Z79.01 Long term (current) use of anticoagulants; Z82.49 Family history of ischemic heart disease and other diseases of the circulatory system; Z86.79 Personal history of other diseases of the circulatory system; Z95.1 Presence of aortocoronary bypass graft; Z98.62 Peripheral vascular angioplasty status; Z88.0 Allergy status to penicillin
CPT/HCPCS: 36415; 51702; 71045; 80048; 80053; 80162; 80202; 81001; 82533; 82550; 82803; 83605; 83735; 83880; 84145; 84443; 84484; 85025; 85379; 87040; 93005; 93320; 93970; 94640; 94660; 94760; 96361; 96365; 96375; J0282; J0456; J0696; J1160; J1650; J1940; J1956; J2543; J2920; J2930; J3370; J3490; J7040; J7050; U0003; 97110; 97116; 97530; 97535; 99285-25; J7613

== ENCOUNTER 2021-10-05 17:12 | Inpatient (IN) | payer MEDICARE ==
[~2021-10-05] VITALS: Ht 182.9 cm; Wt 62.0 kg
[~2021-10-05 17:12] MED LIST: ACET500T68 PO; ALBU2.5V5 NEB; ALBU2.5V8 IH; ASPI-630 PO; CALC1CAP8 PO; CLON1TAB PO; EZET10TA49 PO; HYDR-2763 PO; METO25TA4 PO; OMEP40CA7 PO; UMEC1DIS INH
[2021-10-05 19:26] LABS: BASO # 0.2 x10^3/uL (0.0-0.2); BASO % 2 % (0-3); EOS # 0.2 x10^3/uL (0.0-0.7); EOS % 2 % (0-3); HEMOGLOBIN 13.7 g/dL (13.0-17.5); LYMPH # 0.6 x10^3/uL (1.0-4.8); LYMPH % 8 % (24-48); MEAN CORPUSCULAR HEMOGLOBIN 31 pg (25-35); MEAN CORPUSCULAR HGB CONC 32 g/dL (31-37); MEAN CORPUSCULAR VOLUME 96 fL (79-100); MONO # 0.6 x10^3/uL (0.0-1.1); MONO % 8 % (0-9); NEUT # 6.1 x10^3uL (1.8-7.7); NEUT % 80 % (31-73); PLATELET COUNT 227 x10^3/uL (140-400); RED CELL DISTRIBUTION WIDTH 20.7 % (11.5-14.5); WHITE BLOOD COUNT 7.7 x10^3/uL (4.0-11.0)
--- NOTE | 2021-10-05 19:32 | RAD ---
Exam: Chest one view INDICATION: Hypoxia TECHNIQUE: Frontal view of the chest Comparisons: None FINDINGS: Sternotomy wires are noted. Surgical clips overlying the left heart border. The cardiomediastinal silhouette and pulmonary vessels are within normal limits. Strandy opacity at the lung bases bilaterally. No pleural effusion. IMPRESSION: Bibasilar strandy opacities may relate to atelectasis. Electronically signed by: Florence Moreno MD (10/05/2021 7:29 PM) ZACK
[2021-10-05 19:37] LABS: ANION GAP 13 (6-14); BLOOD UREA NITROGEN 54 mg/dL (8-26); BUN/CREATININE RATIO 17 (6-20); CALCIUM 8.4 mg/dL (8.5-10.1); CARBON DIOXIDE 23 mmol/L (21-32); CHLORIDE 106 mmol/L (98-107); CREATININE 3.2 mg/dL (0.7-1.3); GFR 18.6; GLUCOSE 93 mg/dL (70-99); POTASSIUM 4.5 mmol/L (3.5-5.1); SODIUM 142 mmol/L (136-145)
[2021-10-05 19:45] LABS: INFLUENZA A PATIENT NEGATIVE (NEGATIVE); INFLUENZA B PATIENT NEGATIVE (NEGATIVE)
[2021-10-05 20:04] LABS: ALBUMIN 3.2 g/dL (3.4-5.0); ALBUMIN/GLOBULIN RATIO 0.8 (1.0-1.7); ALK PHOS 84 U/L (46-116); ALT (SGPT) 18 U/L (16-63); AST (SGOT) 27 U/L (15-37); TOTAL BILIRUBIN 0.9 mg/dL (0.2-1.0); TOTAL PROTEIN 7.4 g/dL (6.4-8.2)
[2021-10-05] MEDS ORDERED: IV NORMAL SALINE 1,000ML 1,000 ML IV ONE (20:30)
[2021-10-05] MEDS ORDERED: FUROSEMIDE 40 MG/4 ML VIAL IVP ONE (20:30)
--- NOTE | 2021-10-05 20:40 | PHYS DOC ---
Past History Past Surgical History: Cholecystectomy, Other Additional Past Surgical Histo: CABG (ANDRADE LAMBERT APRN) Alcohol Use: None (ANDRADE LAMBERT APRN) Adult General Chief Complaint Chief Complaint: SHORTNESS OF BREATH HPI HPI Patient is a 81-year-old male who presents to the emergency department chief complaint he was sent here by his primary care physician Dr. Frias after an appointment to have his hydrocodone chronic pain medication refilled. Patient reports he was told his oxygen saturation was very low and to come straight to the emergency department for evaluation. Patient denies chest pains, reports he is always short of breath but no changes in his normal shortness of breath, denies other aches or pains. Denies recent fever or chills. Reports history of CABG in the past with congestive heart failure and COPD. Patient denies other physical complaints or physical concerns. (ANDRADE LAMBERT APRN) Review of Systems Review of Systems 14 body systems of review of systems have been reviewed. See HPI for pertinent positives and negative responses, otherwise all other systems are negative, nonpertinent or noncontributory. Constitutional: Negative except as outlined in HPI above. Skin: Negative except as outlined in HPI above. Eyes: Negative except as outlined in HPI above. HENT: Negative except as outlined in HPI above. Respiratory: Negative except as outlined in HPI above. Cardiovascular: Negative except as outlined in HPI above. GI: Negative except as outlined in HPI above. : Negative except as outlined in HPI above. Musculoskeletal: Negative except as outlined in HPI above. Integument: Negative except as outlined in HPI above. Neurologic: Negative except as outlined in HPI above. Endocrine: Negative except as outlined in HPI above. Lymphatic: Negative except as outlined in HPI above. Psychiatric: Negative except as outlined in HPI above. (ANDRADE LAMBERT APRN) Current Medications Current Medications Current Medications Medications (Trade) Dose Ordered Sig/Farhad Start Time Stop Time Status Last Admin Dose Admin Furosemide (Lasix) 20 mg 1X ONCE 10/05/21 20:30 10/05/21 20:31 UNV Sodium Chloride 1,000 ml @ 75 mls/hr 1X ONCE 10/05/21 20:30 10/06/21 09:49 UNV (ANDRADE LAMBERT APRN) Allergies Allergies Allergies Coded Allergies Type Severity Reaction Last Updated Verified Penicillins Allergy Unknown 06/27/21 Yes adhesive Allergy Unknown 06/27/21 Yes (ANDRADE LAMBERT APRN) Physical Exam Physical Exam Constitutional: Well developed, well nourished, no acute distress, non-toxic appearance. 81-year-old male in no apparent distress. HENT: Normocephalic, atraumatic. Eyes: Conjunctiva normal, no discharge. Neck: Normal range of motion, no stridor. Cardiovascular: No cyanosis appreciated, distal cap refill less than 2 seconds. Regular rate and rhythm Lungs & Thorax: Patient is in no respiratory distress, no audible adventitious lung sounds appreciated. Decreased lung sounds with inspiratory expiratory rales in bilateral bases, clear lung sounds upper lobes. Patient's room air sat 85%, patient started on nonrebreather oxygen. Abdomen: Nontender, no abnormalities noted. Skin: Warm, dry, no erythema, no rash. Back: No tenderness, no deformities. Extremities: No tenderness, no cyanosis, no clubbing, ROM intact, no edema. Neurologic: Alert and oriented X 3, normal motor function, normal sensory function, no focal deficits noted. Psychologic: Affect normal, judgement normal, mood normal. (ANDRADE LAMBRET APRN) Current Patient Data Vital Signs Vital Signs Date Time Temp Pulse Resp B/P (MAP) Pulse Ox O2 Delivery O2 Flow Rate FiO2 10/05/21 19:27 62 16 116/72 (87) 100 NonRebreather Mask 12.0 Lab Results Laboratory Tests Test 10/05/21 18:11 10/05/21 18:55 Influenza Type A (Rapid) Negative (NEGATIVE) Influenza Type B (Rapid) Negative (NEGATIVE) SARS-CoV-2 Antigen (Rapid) Negative (NEGATIVE) White Blood Count 7.7 x10^3/uL (4.0-11.0) Red Blood Count 4.50 x10^6/uL (4.30-5.70) Hemoglobin 13.7 g/dL (13.0-17.5) Hematocrit 43.0 % (39.0-53.0) Mean Corpuscular Volume 96 fL (79-100) Mean Corpuscular Hemoglobin 31 pg (25-35) Mean Corpuscular Hemoglobin Concent 32 g/dL (31-37) Red Cell Distribution Width 20.7 % (11.5-14.5) H Platelet Count 227 x10^3/uL (140-400) Neutrophils (%) (Auto) 80 % (31-73) H Lymphocytes (%) (Auto) 8 % (24-48) L Monocytes (%) (Auto) 8 % (0-9) Eosinophils (%) (Auto) 2 % (0-3) Basophils (%) (Auto) 2 % (0-3) Neutrophils # (Auto) 6.1 x10^3uL (1.8-7.7) Lymphocytes # (Auto) 0.6 x10^3/uL (1.0-4.8) L Monocytes # (Auto) 0.6 x10^3/uL (0.0-1.1) Eosinophils # (Auto) 0.2 x10^3/uL (0.0-0.7) Basophils # (Auto) 0.2 x10^3/uL (0.0-0.2) Platelet Estimate Pending Sodium Level 142 mmol/L (136-145) Potassium Level 4.5 mmol/L (3.5-5.1) Chloride Level 106 mmol/L (98-107) Carbon Dioxide Level 23 mmol/L (21-32) Anion Gap 13 (6-14) Blood Urea Nitrogen 54 mg/dL (8-26) H Creatinine 3.2 mg/dL (0.7-1.3) H Estimated GFR (Cockcroft-Gault) 18.6 BUN/Creatinine Ratio 17 (6-20) Glucose Level 93 mg/dL (70-99) Lactic Acid Level 3.9 mmol/L (0.4-2.0) H Calcium Level 8.4 mg/dL (8.5-10.1) L Total Bilirubin 0.9 mg/dL (0.2-1.0) Aspartate Amino Transferase (AST) 27 U/L (15-37) Alanine Aminotransferase (ALT) 18 U/L (16-63) Alkaline Phosphatase 84 U/L (46-116) Creatine Kinase 53 U/L (39-308) Creatine Kinase MB (Mass) 1.2 ng/mL (0.0-3.6) Creatine Kinase MB Relative Index 2.3 % (0-4) Troponin I High Sensitivity 37 ng/L (4-75) XK-Mos-G-Type Natriuretic Peptide > 77191 pg/mL (0-449) H Total Protein 7.4 g/dL (6.4-8.2) Albumin 3.2 g/dL (3.4-5.0) L Albumin/Globulin Ratio 0.8 (1.0-1.7) L (ANDRADE LAMBERT APRN) EKG EKG EKG performed at 1914 by ED nursing staff shows a normal sinus rhythm heart rate 65 bpm, QTc interval 0.494, no acute STEMI, no ACS, no acute ischemia appreciated, EKG interpreted by ED attending physician Dr. Burrell. (ANDRADE LAMBERT APRN) Radiology/Procedures Radiology/Procedures REASON: Hypoxia PROCEDURE: CHEST AP ONLY Exam: Chest one view INDICATION: Hypoxia TECHNIQUE: Frontal view of the chest Comparisons: None FINDINGS: Sternotomy wires are noted. Surgical clips overlying the left heart border. The cardiomediastinal silhouette and pulmonary vessels are within normal limits. Strandy opacity at the lung bases bilaterally. No pleural effusion. IMPRESSION: Bibasilar strandy opacities may relate to atelectasis. Electronically signed by: Florence Moreno MD (10/05/2021 7:29 PM) [facility] (ANDRADE LAMBERT APRN) Heart Score C/O Chest Pain: No Risk Factors: Risk Factors: DM, Current or recent (<one month) smoker, HTN, HLP, family history of CAD, obesity. Risk Scores: Risk Factors: DM, Current or recent (<one month) smoker, HTN, HLP, family history of CAD, obesity. (ANDRADE LAMBERT APRN) Course & Med Decision Making Course & Med Decision Making Pertinent Labs and Imaging studies reviewed. (See chart for details) 81-year-old male, vital signs reviewed, presents emerged from concerning hypoxia while at his primary care physician's office for appointment for refill of chronic pain medications. Patient's physical examination concerning for hypoxia, patient was started on nonrebreather oxygen, EKG, chest x-ray, CBC, CMP, proBNP, high-sensitivity troponin I, cardiac isoenzymes, lactic acid level. Urinalysis assay. Patient's chest x-ray unremarkable for acute respiratory process, patient's lactic acid level elevated 3.8, acute kidney injury creatinine 3.2, congestive heart failure proBNP NT greater than 35,000, discussed with patient recommended admission to the hospital, patient is amendable to hospital admission, called and discussed patient case and ED presentation with patient's primary care physician Dr. Frias who agrees patient's ED case and presentation warrants admission to the telemetry unit. Dr. Frias requested cardiology consult with echocardiogram in a.m., normal saline at 75 cc an hour with IV Lasix 20 mg prior to admission to the floor. Patient awaiting telemetry room assignment by warehouse packer. (ANDRADE LAMBERT APRN) Dragon Disclaimer Dragon Disclaimer This electronic medical record was generated, in whole or in part, using a voice recognition dictation system. (ANDRADE LAMBERT APRN) Attending Co-Sign The patient was seen and interviewed as well as examined at the bedside. The chart was reviewed. The case was discussed. Agree with the plan of care. (JASPAL BURRELL DO) Departure Departure: Impression: Primary Impression: Congestive heart failure Additional Impressions: Hypoxia Acute kidney injury High serum lactate Disposition: ADMITTED INPATIENT Admitting Physician: Kvng Frias (Admit to telemetry unit, consult cardiology, echocardiogram in a.m.) (ANDRADE LAMBERT APRN) Condition: GUARDED Referrals: KVNG FRIAS MD (PCP) Problem Qualifiers Primary Impression: Congestive heart failure Heart failure type: unspecified Heart failure chronicity: unspecified Qualified Codes: I50.9 - Heart failure, unspecified ANDRADE LAMBERT APRN Oct 05, 2021 20:40 JASPAL BURRELL DO Oct 06, 2021 05:53
[2021-10-05 21:08] LABS: PLT ESTIMATE INCREASED (ADEQUATE)
[2021-10-05 21:10] LABS: ANISOCYTOSIS SLIGHT
[2021-10-05 21:51] LABS: BILIRUBIN,URINE NEG (NEG); CLARITY,URINE CLEAR; COLOR,URINE YELLOW; GLUCOSE,URINE NEG (NEG); NITRITE,URINE NEG (NEG); UROBILINOGEN,URINE 0.2 mg/dL (0.2 mg/dL)
[2021-10-05 21:52] LABS: BACTERIA,URINE FEW /HPF (0-FEW); SQUAMOUS EPITHELIAL CELL,UR FEW /LPF
[2021-10-05 22:24] VITALS: BP 101/65
--- NOTE | 2021-10-05 23:07 | NUR ---
The patient, JACK PINA, 81 y/o, M admitted by KVNG FRIAS MD, was given written information regarding hospital policies, unit procedures and contact persons. Valuables were checked and vital signs noted. Reviewed with PT his PMH, PSH, SH, FH and medications. PT unable to recall all medications, asked to contact /son for list. unable to provide. Son not sure which medications in his drawer are current. Some medications verified but not a complete list. List will be verified when [facility] opens in am. PT is a good historian on PMH, SH, PSH. PT stated he was in his doctor's office where they noted him to be hypoxic and sent to ER. PT states he normally runs in low 80s. Family states he refuses to consider home oxygen.
[2021-10-06 06:25] VITALS: BP 88/58
--- NOTE | 2021-10-06 07:14 | EKG ---
[address] [address] Test Date: 2021-10-05 Test Time: 19:14:59 Pat Name: JACK PINA Department: Room: 125 A Gender: M Negative Cutter: : [id number] Requested By: ANDRADE LAMBERT Order Number: [id number] Reading MD: Kobe Coleman MD Measurements Intervals [place] Rate: 65 P: NE: QRS: 109 QRSD: 118 T: -42 QT: 474 QTc: 494 Interpretive Statements SR BASELINE ARTIFACT NON-SPECIFIC ST/T CHANGES CONSIDER REPEAT EKG Electronically Signed On 10-08-2021 20:55:39 DIRECTOR OF INSTRUMENTAL MUSIC by Kobe Coleman MD
[2021-10-06] MEDS ORDERED: APIX5TAB5 PO (10:00)
[2021-10-06] MEDS ORDERED: MIDO2.5T PO (10:00)
[2021-10-06] MEDS ORDERED: LEVO100T5 PO (10:00)
[2021-10-06] MEDS ORDERED: AMIO200T54 PO (10:00)
[2021-10-06] MEDS ORDERED: FURO-68 PO (10:00)
[2021-10-06] MEDS ORDERED: FUROSEMIDE 20 MG/2 ML VIAL IVP ONE (11:15)
[2021-10-06] MEDS ORDERED: IPRATRPIUM/ALBUTEROL 0.5/2.5MG 3 ML NEBU. NEB PRN (11:15)
[2021-10-06 11:23] VITALS: BP 109/68
[2021-10-06] MEDS ORDERED: PIP/TAZO PER PHARMACY MC PRN (12:30)
[2021-10-06] MEDS ORDERED: levoFLOXacin PER PHARMACY 1 EACH. MC PRN (12:30)
--- NOTE | 2021-10-06 12:40 | PDOC2 ---
CONSULT DOS: DATE: 10/06/21 TIME: 12:40 Reason for Consult: Congestive heart failure Referring Physician: Dr. Lebron Chief Complaint Shortness of breath Source: Chart review, Patient Problem List Problems Medical Problems: (1) Acute kidney injury Status: Acute (2) Congestive heart failure Status: Acute (3) High serum lactate Status: Acute (4) Hypoxia Status: Acute History of Present Illness 81-year-old male with history of coronary artery disease s/p coronary artery bypass surgery, atrial flutter, COPD, AAA s/p TEVAR apparently was seen by PCP to have his hydrocodone (he takes for chronic pain) refilled and was noted to be hypoxic and admitted for further management. Patient at baseline shortness of breath from COPD and denied any recent worsening. He denied any chest pain, orthopnea/PND, palpitations or syncope. Past Medical History Cardiovascular: CAD, HTN, hyperipidemia, Other (PAD, AAA ) Pulmonary: COPD GI: GERD Psych: Anxiety Musculoskeletal: Osteoarthritis Past Surgical History: CABG Family History Not contributory Social History Smoke: Quit ALCOHOL: none Drugs: None Lives: with Family Current Medications Current Medications Sodium Chloride 1,000 ml @ 75 mls/hr 1X ONCE IV Last administered on 10/05/21at 20:30; Start 10/05/21 at 20:30; Stop 10/06/21 at 09:49; Status DC Furosemide (Lasix) 20 mg 1X ONCE IVP Last administered on 10/05/21at 21:11; Start 10/05/21 at 20:30; Stop 10/05/21 at 20:37; Status DC Albuterol/ Ipratropium (Duoneb) 3 ml PRN QID PRN NEB SHORTNESS OF BREATH Last administered on 10/06/21at 11:28; Start 10/06/21 at 11:15 Furosemide (Lasix) 20 mg 1X ONCE IVP Last administered on 10/06/21at 11:28; Start 10/06/21 at 11:15; Stop 10/06/21 at 11:21; Status DC Piperacillin Sod/ Tazobactam Sod (Zosyn Per Pharmacy) 1 each PRN DAILY PRN MC SEE COMMENTS; Start 10/06/21 at 12:30; Status UNV Levofloxacin/ Dextrose (Levaquin Per Pharmacy) 1 each PRN DAILY PRN MC SEE COMMENTS; Start 10/06/21 at 12:30; Status UNV Dexamethasone Sodium Phosphate (Decadron) 4 mg Q8HRS IVP ; Start 10/06/21 at 14:00; Status UNV Active Scripts Active Reported Levothyroxine Sodium 100 Mcg Tablet 1 Tab PO DAILY Lasix (Furosemide) 40 Mg Tablet 1 Tab PO DAILY 30 Days Eliquis (Apixaban) 5 Mg Tab.ds.pk 2.5 Mg PO BID Midodrine Hcl 2.5 Mg Tablet 2.5 Mg PO BID Amiodarone Hcl 200 Mg Tablet 1 Tab PO BID Albuterol Sulfate Neb Soln (Albuterol Sulfate) 2.5 Mg/3 Ml Vial.neb 2.5 Mg NEB QID Calcium 600+D Softgel (Calcium Carbonate/Vitamin D3) 1 Each Capsule 1 Cap PO DAILY 30 Days Aspirin 81 Mg Tab.chew 81 Mg PO DAILY Acetaminophen 500 Mg Tablet 500 Mg PO PRN Q4HRS PRN Proair Hfa Inhaler (Albuterol Sulfate) 8.5 Gm Hfa.aer.ad 2 Puff IH PRN QID PRN Metoprolol Tartrate 25 Mg Tablet 1 Tab PO BID Omeprazole 40 Mg Capsule.dr 1 Cap PO DAILY Klonopin (Clonazepam) 1 Mg Tablet 1 Mg PO PRN Q8HRS PRN Ezetimibe 10 Mg Tablet 1 Tab PO DAILY Anoro Ellipta 62.5-25 Mcg Inh (Umeclidinium Brm/Vilanterol Tr) 1 Each Disk.w.dev 1 Puff INH DAILY Hydrocodone-Acetamin 7.5-325 (Hydrocodone/Acetaminophen) 1 Each Tablet 1 Tab PO PRN Q6HRS PRN Allergies: Coded Allergies: Penicillins (Verified Allergy, Unknown, 06/27/21) adhesive (Verified Allergy, Unknown, 06/27/21) PSYCHOLOGICAL ROS: No: Hallucinations Eyes: No: Loss of vision HEENT: No: Epistaxis Respiratory: YES: Cough, Shortness of breath Cardiovascular: No: Chest Pain Gastrointestinal: No: Vomiting, Diarrhea Genitourinary: No: [place] Neurological: No: Seizures General: Alert, Oriented X3 HEENT: Atraumatic Lungs: Other (Scattered fine crepitations bilaterally) Heart: Regular rate Abdomen: Soft, No tenderness Extremities: No edema Neuro: Normal speech Psych/Mental Status: Mood NL VITALS Vital Signs Date Time Temp Pulse Resp B/P (MAP) Pulse Ox O2 Delivery O2 Flow Rate FiO2 10/06/21 11:23 98.4 69 20 109/68 (82) 95 Nasal Cannula 5.0 Labs Laboratory Tests Test 10/05/21 18:11 10/05/21 18:55 10/05/21 19:30 10/05/21 20:45 Coronavirus (COVID-19)(PCR) Not detected (NOT DETECTD) Influenza Type A (Rapid) Negative (NEGATIVE) Influenza Type B (Rapid) Negative (NEGATIVE) SARS-CoV-2 Antigen (Rapid) Negative (NEGATIVE) White Blood Count 7.7 x10^3/uL (4.0-11.0) Red Blood Count 4.50 x10^6/uL (4.30-5.70) Hemoglobin 13.7 g/dL (13.0-17.5) Hematocrit 43.0 % (39.0-53.0) Mean Corpuscular Volume 96 fL (79-100) Mean Corpuscular Hemoglobin 31 pg (25-35) Mean Corpuscular Hemoglobin Concent 32 g/dL (31-37) Red Cell Distribution Width 20.7 % (11.5-14.5) Platelet Count 227 x10^3/uL (140-400) Neutrophils (%) (Auto) 80 % (31-73) Lymphocytes (%) (Auto) 8 % (24-48) Monocytes (%) (Auto) 8 % (0-9) Eosinophils (%) (Auto) 2 % (0-3) Basophils (%) (Auto) 2 % (0-3) Neutrophils # (Auto) 6.1 x10^3uL (1.8-7.7) Lymphocytes # (Auto) 0.6 x10^3/uL (1.0-4.8) Monocytes # (Auto) 0.6 x10^3/uL (0.0-1.1) Eosinophils # (Auto) 0.2 x10^3/uL (0.0-0.7) Basophils # (Auto) 0.2 x10^3/uL (0.0-0.2) Platelet Estimate Increased (ADEQUATE) Large Platelets Few Giant Platelets Occ Anisocytosis Slight Sodium Level 142 mmol/L (136-145) Potassium Level 4.5 mmol/L (3.5-5.1) Chloride Level 106 mmol/L (98-107) Carbon Dioxide Level 23 mmol/L (21-32) Anion Gap 13 (6-14) Blood Urea Nitrogen 54 mg/dL (8-26) Creatinine 3.2 mg/dL (0.7-1.3) Estimated GFR (Cockcroft-Gault) 18.6 BUN/Creatinine Ratio 17 (6-20) Glucose Level 93 mg/dL (70-99) Lactic Acid Level 3.9 mmol/L (0.4-2.0) Calcium Level 8.4 mg/dL (8.5-10.1) Total Bilirubin 0.9 mg/dL (0.2-1.0) Aspartate Amino Transf (AST/SGOT) 27 U/L (15-37) Alanine Aminotransferase (ALT/SGPT) 18 U/L (16-63) Alkaline Phosphatase 84 U/L (46-116) Creatine Kinase 53 U/L (39-308) Creatine Kinase MB (Mass) 1.2 ng/mL (0.0-3.6) Creatine Kinase MB Relative Index 2.3 % (0-4) Troponin I High Sensitivity 37 ng/L (4-75) AD-Mra-H-Type Natriuretic Peptide > 23049 pg/mL (0-449) Total Protein 7.4 g/dL (6.4-8.2) Albumin 3.2 g/dL (3.4-5.0) Albumin/Globulin Ratio 0.8 (1.0-1.7) Bedside Venous pH 7.32 (7.32-7.42) Bedside Venous pCO2 43 mmHg (41-51) Bedside Venous pO2 30 mmHg (20-40) Venous Blood HCO3 22 mmol/L (24-28) POC Venous O2 Saturation ([place]) 52 % Bedside FiO2 100 Urine Collection Type Unknown Urine Color Yellow Urine Clarity Clear Urine pH 5.5 Urine Specific [place] 1.015 Urine Protein 30 mg/dl (NEG-TRACE) Urine Glucose (UA) Neg mg/dL (NEG) Urine Ketones (Stick) Neg mg/dL (NEG) Urine Blood Mod (NEG) Urine Nitrite Neg (NEG) Urine Bilirubin Neg (NEG) Urine Urobilinogen Dipstick 0.2 mg/dL (0.2 mg/dL) Urine Leukocyte Esterase Neg (NEG) Urine RBC 3-5 /HPF (0-2) Urine WBC 5-10 /HPF (0-4) Urine Squamous Epithelial Cells Few /LPF Urine Bacteria Few /HPF (0-FEW) Urine Mucus Slight /LPF Test 10/05/21 22:40 10/06/21 06:34 Lactic Acid Level 3.0 mmol/L (0.4-2.0) Bedside Venous pH 7.36 (7.32-7.42) Bedside Venous pCO2 42 mmHg (41-51) Bedside Venous pO2 50 mmHg (20-40) Venous Blood HCO3 24 mmol/L (24-28) POC Venous O2 Saturation ([place]) 84 % Bedside FiO2 21 Assessment/Plan 1. Acute respiratory failure secondary to combination of acute COPD exacerbation and acute on chronic diastolic heart failure. 2. Acute on chronic diastolic heart failure: Last 2D echo showed LVEF 55% with severe pulmonary hypertension with PA pressure 77 mmHg. Chest x-ray did not show any acute process but BNP level significantly elevated. Continue gentle diuresis with Lasix with close monitoring of BUN/creatinine. 3. Coronary artery disease s/p coronary artery bypass surgery in 2002, clinically stable and chest pain-free. Troponin levels within normal limits. He is usually followed by Dr. Banks with [facility]. Continue current secondary prevention measures. 4. Paroxysmal atrial flutter, presently in sinus rhythm. Continue amiodarone for rhythm maintenance and Eliquis for stroke prophylaxis. 5. Hypertension: Controlled 6. Hyperlipidemia: Statin intolerant, on Zetia 7. Acute on chronic renal insufficiency: Per PCP 8. PAD s/p MACHINIST BENCH/stent, stable without any claudication symptoms 9. Abdominal aortic aneurysm s/p TEVAR converted to open repair in 2008 Thank you for your consultation KELLEY SERRA MD Oct 06, 2021 12:40
[2021-10-06] MEDS ORDERED: clonazePAM 1 MG TABLET PO PRN (13:00)
[2021-10-06] MEDS ORDERED: ALBUTEROL SULFATE 2.5 MG/3 ML NEBU. IH PRN (13:00)
[2021-10-06] MEDS ORDERED: HYDROcodone/APAP 7.5/325MG 1 TAB TABLET PO PRN (13:00)
[2021-10-06] MEDS ORDERED: ACETAMINOPHEN 500 MG TABLET PO PRN (13:00)
[2021-10-06] MEDS: DEXAMETHASONE SOD PHOS 4 MG/ML VIAL. IVP SCH ×2 (14:41→21:09)
[2021-10-06] MEDS: ALBUTEROL SULFATE 2.5 MG/3 ML NEBU. NEB SCH ×2 (15:51→21:10)
--- NOTE | 2021-10-06 15:51 | NUR ---
Nursing note: Patient alert and oriented x 4, pleasant, cooperative. Patient was seen by PCP, armature bander, OT, and surveyor oil well directional. Patient was having difficulty keeping O2 sat above 80% at O2 supplement 4.5 LPM. Lasix 20 mg and breathing treatment given per MD's order, O2 sat went up to 96% with O2 supplement at 1 LPM. Will continue patient's condition.
[2021-10-06 16:42] VITALS: BP 109/61
[2021-10-06] MEDS: AZTREONAM 2 GM in IV NORMAL SALINE 100ML 100 ML IV SCH (17:20)
[2021-10-06] MEDS: MIDODRINE 2.5 MG TABLET PO SCH (17:21)
[2021-10-06] MEDS ORDERED: AZTREONAM 1 GM in IV NORMAL SALINE 50ML 50 ML IV SCH (18:00)
[2021-10-06 20:12] VITALS: BP 96/54
[2021-10-06] MEDS: METOPROLOL TART IMMED RELEASE 25 MG TABLET. PO SCH (21:00)
[2021-10-06] MEDS: AMIODARONE HCL 200 MG TABLET. PO SCH (21:00)
[2021-10-06] MEDS: APIXABAN 2.5 MG TABLET PO SCH (21:09)
[2021-10-07 00:39] VITALS: BP 117/60
[2021-10-07] MEDS: AZTREONAM 2 GM in IV NORMAL SALINE 100ML 100 ML IV SCH ×2 (05:02→17:29)
[2021-10-07] MEDS: LEVOTHYROXINE 100 MCG TABLET PO SCH (05:02)
[2021-10-07] MEDS: DEXAMETHASONE SOD PHOS 4 MG/ML VIAL. IVP SCH ×3 (05:02→21:46)
[2021-10-07] MEDS: ALBUTEROL SULFATE 2.5 MG/3 ML NEBU. NEB SCH ×4 (05:28→21:07)
[2021-10-07 05:56] VITALS: BP 96/59
[2021-10-07] MEDS: MIDODRINE 2.5 MG TABLET PO SCH ×2 (06:20→17:29)
[2021-10-07 07:40] VITALS: BP 106/62
[2021-10-07] MEDS: ASPIRIN CHEWABLE 81 MG TABLET. PO SCH (08:35)
[2021-10-07] MEDS: CALCIUM CARB/VIT D3 500/200 TABLET PO SCH (08:35)
[2021-10-07] MEDS: AMIODARONE HCL 200 MG TABLET. PO SCH ×2 (08:36→20:51)
[2021-10-07] MEDS: APIXABAN 2.5 MG TABLET PO SCH ×2 (08:36→21:45)
[2021-10-07] MEDS: PANTOPRAZOLE 40 MG TABLET. PO SCH (08:36)
[2021-10-07] MEDS: METOPROLOL TART IMMED RELEASE 25 MG TABLET. PO SCH ×2 (08:37→20:51)
[2021-10-07 10:38] VITALS: BP 101/62
[2021-10-07 14:54] VITALS: BP 92/57
--- NOTE | 2021-10-07 16:11 | PDOC ---
DATE OF SERVICE: DOS: DATE: 10/07/21 TIME: 16:09 SUBJECTIVE: Patient seen and examined OBJECTIVE: Problems: Problems Medical Problems: (1) Acute kidney injury Status: Acute (2) Congestive heart failure Status: Acute (3) High serum lactate Status: Acute (4) Hypoxia Status: Acute Vital Signs/I&O: Vital Signs Date Time Temp Pulse Resp B/P (MAP) Pulse Ox O2 Delivery O2 Flow Rate FiO2 10/07/21 15:23 Nasal Cannula 2.0 10/07/21 14:54 98.2 59 20 92/57 (69) 93 I & O 10/06/21 10/06/21 10/07/21 15:00 23:00 07:00 Intake Total 805 ml 440 ml 125 ml Output Total 950 ml 400 ml 950 ml Balance -145 ml 40 ml -825 ml Physical Exam: Chest. Decreased breath sounds bilaterally. CV. Regular rate and rhythm. Abdomen soft. ASSESSMENT: 1. Acute respiratory failure secondary to combination of acute COPD exacerbation and acute on chronic diastolic heart failure. Improved today. Continue present medications and monitor. 2. Acute on chronic diastolic heart failure: Last 2D echo showed LVEF 55% with severe pulmonary hypertension with PA pressure 77 mmHg. Chest x-ray did not show any acute process but BNP level significantly elevated. Continue gentle diuresis with Lasix with close monitoring of BUN/creatinine. 3. Coronary artery disease s/p coronary artery bypass surgery in 2002, clinically stable and chest pain-free. Troponin levels within normal limits. He is usually followed by Dr. Banks with [facility]. 4. Paroxysmal atrial flutter, presently in sinus rhythm. Continue amiodarone for rhythm maintenance and Eliquis for stroke prophylaxis. 5. Hypertension: Controlled on present medications. 6. Hyperlipidemia: Statin intolerant, on Zetia 7. Acute on chronic renal insufficiency: Per PCP. Monitoring lab. 8. PAD s/p INVESTIGATIONS CHIEF/stent, stable without any claudication symptoms 9. Abdominal aortic aneurysm s/p TEVAR converted to open repair in 2008 Justification of Admission: Justification of Admission: Justification of Admission Dx: Yes GEOVANI LUJAN MD Oct 07, 2021 16:11
[2021-10-07 20:14] VITALS: BP 95/62
--- NOTE | 2021-10-07 20:52 | NUR ---
Nursing note: Spoke with Dr. Lebron regarding low BP x2noc shift, stated to hold again tonight and will address with cardiology in AM.
--- NOTE | 2021-10-07 20:58 | PN ---
SUBJECTIVE: The patient is resting fairly comfortably. The patient is in with acute on top of chronic congestive heart failure as well as that of severe problems with acute renal problems and the like. The patient is monitoring carefully. He continues on IV antibiotic therapy. His lactic acid continues to be elevated. We will continue to monitor him accordingly as such. OBJECTIVE: VITAL SIGNS: Blood pressure 92/57, respiratory rate 20, pulse 60, afebrile, 2 liters per nasal cannula. PLAN: Continue to monitor. The patient will probably need oxygen on his way home as well as be monitored by Nephrology. YEISON DR: Joe TID: [id number]
[2021-10-07 21:07] LABS: CALCIUM 7.8 mg/dL (8.5-10.1); CREATININE 2.2 mg/dL (0.7-1.3); GFR 28.7; POTASSIUM 4.8 mmol/L (3.5-5.1)
[2021-10-07 21:11] LABS: ALBUMIN 2.5 g/dL (3.4-5.0); PHOSPHORUS 2.5 mg/dL (2.6-4.7)
[2021-10-07] MEDS: LACTOBACILLUS RHAMNOSUS GG 1 CAPSULE. PO SCH (21:45)
[2021-10-08] VITALS: BP 104/62
--- NOTE | 2021-10-08 01:35 | PN ---
SUBJECTIVE: An 81-year-old gentleman in with multiple medical issues including acute kidney problems, congestive heart failure, high serum lactate which is probably acute possibly related to his renal function and respiratory failure, acute exacerbation of COPD as well as chronic diastolic heart failure, somewhat improved. He feels better overall, but of course his numbers do not look particularly well. He does have paroxysmal atrial flutter as well. OBJECTIVE: GENERAL: The patient is alert and oriented. VITAL SIGNS: Blood pressure 92/57, respiratory rate 20, pulse 60, afebrile. He is down to 2 liters at 93. He vacillates on this and will continue to be monitored carefully on that. Otherwise, he will continue to be monitored on his renal function. LUNGS: Actually fairly good movement of air, but basically diminished overall. CARDIOVASCULAR: Irregularly irregular rhythm. ABDOMEN: Soft, nontender. EXTREMITIES: No clubbing, cyanosis. There is edema noted bilaterally. NEUROLOGIC: Otherwise alert and oriented, baseline there. IMPRESSION: Acute respiratory failure, acute exacerbation of chronic obstructive pulmonary disease with possible bronchitis, possible congestive heart failure, chronic renal failure stage IV, elevated lactic acid, possibly related to renal dysfunction, elevated BNP, moderate protein malnutrition. The patient is not running a temperature. Will have to follow up with Cardiology as well as Nephrology and make further evaluation on him as indicated. GREGORY/DELANEY DR: Joe TID: [id number]
[2021-10-08 05:00] VITALS: BP 104/63
[2021-10-08] MEDS: ALBUTEROL SULFATE 2.5 MG/3 ML NEBU. NEB SCH ×2 (05:41→09:23)
[2021-10-08] MEDS: LEVOTHYROXINE 100 MCG TABLET PO SCH (05:48)
[2021-10-08] MEDS: MIDODRINE 2.5 MG TABLET PO SCH (05:59)
[2021-10-08] MEDS ORDERED: IV DEXTROSE 5% 100 ML IV ONE (06:00)
[2021-10-08 08:05] LABS: BASO % 0 % (0-3); EOS % 0 % (0-3); HEMATOCRIT 36.3 % (39.0-53.0); HEMOGLOBIN 11.7 g/dL (13.0-17.5); LYMPH # 0.2 x10^3/uL (1.0-4.8); LYMPH % 3 % (24-48); MEAN CORPUSCULAR HEMOGLOBIN 30 pg (25-35); MEAN CORPUSCULAR HGB CONC 32 g/dL (31-37); MEAN CORPUSCULAR VOLUME 93 fL (79-100); MONO # 0.1 x10^3/uL (0.0-1.1); MONO % 2 % (0-9); NEUT # 5.4 x10^3uL (1.8-7.7); NEUT % 95 % (31-73); PLATELET COUNT 171 x10^3/uL (140-400); RED BLOOD COUNT 3.89 x10^6/uL (4.30-5.70); RED CELL DISTRIBUTION WIDTH 19.7 % (11.5-14.5); WHITE BLOOD COUNT 5.7 x10^3/uL (4.0-11.0)
[2021-10-08 08:31] LABS: CALCIUM 7.8 mg/dL (8.5-10.1); CREATININE 1.9 mg/dL (0.7-1.3); MAGNESIUM 2.2 mg/dL (1.8-2.4); POTASSIUM 4.3 mmol/L (3.5-5.1)
[2021-10-08] MEDS: CALCIUM CARB/VIT D3 500/200 TABLET PO SCH (08:51)
[2021-10-08] MEDS: PANTOPRAZOLE 40 MG TABLET. PO SCH (08:51)
[2021-10-08] MEDS: AMIODARONE HCL 200 MG TABLET. PO SCH (08:51)
[2021-10-08] MEDS: ASPIRIN CHEWABLE 81 MG TABLET. PO SCH (08:51)
[2021-10-08] MEDS: METOPROLOL TART IMMED RELEASE 25 MG TABLET. PO SCH (08:51)
[2021-10-08] MEDS: LACTOBACILLUS RHAMNOSUS GG 1 CAPSULE. PO SCH (08:51)
[2021-10-08] MEDS: APIXABAN 2.5 MG TABLET PO SCH (08:51)
[2021-10-08] MEDS: DEXAMETHASONE SOD PHOS 4 MG/ML VIAL. IVP SCH (08:51)
--- NOTE | 2021-10-08 09:11 | PN ---
DATE: 10/06/2021 SUBJECTIVE: The patient admitted with congestive heart failure, exacerbation of COPD with acute bronchitis, possible sepsis, possible hypotension and hypoxia. The patient is doing somewhat better. The patient is on 1 liter at 94%, range is up and down. The patient getting breathing treatments. Says he feels a little bit better. The patient's white count was 7 and his lactic acid was elevated. His BNP was greater than 35,000 and somewhat of ____ problem. Dr. Carmen was kind enough to review the patient and felt that the patient was combination of COPD and CHF with chronic kidney disease, stage IV. OBJECTIVE: VITAL SIGNS: The patient's blood pressure 110/60, respiratory rate 20, pulse 70, afebrile. GENERAL: The patient is alert. He is on nasal cannula. LUNGS: Diminished primarily, but decreased. CARDIOVASCULAR: Regular sinus rhythm. ABDOMEN: Soft, nontender. EXTREMITIES: +2-3 pitting edema. We will continue to monitor the patient accordingly, make further evaluation on him. He is to continue on IV antibiotic therapy. We were doing blood cultures, IV antibiotic therapy. He did have ____. COVID negative. Flu is negative. The patient continues to be monitored carefully and continue with mild diuresis, mild hydration and make further evaluation on him as indicated per those results. IMPRESSION: Acute on top of chronic diastolic heart failure, acute respiratory failure, acute exacerbation of chronic obstructive pulmonary disease with bronchitis, possible sepsis, post-polio syndrome. GI/PERFECTO/HARVINDER DR: GI/angel TID: [id number]
[2021-10-08 11:49] VITALS: BP 96/59
--- NOTE | 2021-10-08 13:56 | PDOC ---
DATE OF SERVICE: DOS: DATE: 10/08/21 TIME: 13:54 SUBJECTIVE: Patient seen and examined OBJECTIVE: Problems: Problems Medical Problems: (1) Acute kidney injury Status: Acute (2) Congestive heart failure Status: Acute (3) High serum lactate Status: Acute (4) Hypoxia Status: Acute Vital Signs/I&O: Vital Signs Date Time Temp Pulse Resp B/P (MAP) Pulse Ox O2 Delivery O2 Flow Rate FiO2 10/08/21 11:49 98.2 56 18 96/59 (71) 92 Nasal Cannula 3.0 I & O 10/07/21 10/07/21 10/08/21 15:00 23:00 07:00 Intake Total 480 ml 360 ml 100 ml Output Total 400 ml 400 ml 350 ml Balance 80 ml -40 ml -250 ml Labs: Laboratory Tests Test 10/07/21 20:30 10/08/21 06:43 10/08/21 07:30 Sodium Level 140 mmol/L (136-145) 140 mmol/L (136-145) Potassium Level 4.8 mmol/L (3.5-5.1) 4.3 mmol/L (3.5-5.1) Chloride Level 106 mmol/L (98-107) 107 mmol/L (98-107) Carbon Dioxide Level 24 mmol/L (21-32) 24 mmol/L (21-32) Anion Gap 10 (6-14) 9 (6-14) Blood Urea Nitrogen 41 mg/dL (8-26) H 37 mg/dL (8-26) H Creatinine 2.2 mg/dL (0.7-1.3) H 1.9 mg/dL (0.7-1.3) H Estimated GFR (Cockcroft-Gault) 28.7 34.0 Glucose Level 144 mg/dL (70-99) H 126 mg/dL (70-99) H Calcium Level 7.8 mg/dL (8.5-10.1) L 7.8 mg/dL (8.5-10.1) L Phosphorus Level 2.5 mg/dL (2.6-4.7) L Albumin 2.5 g/dL (3.4-5.0) L White Blood Count 5.7 x10^3/uL (4.0-11.0) Red Blood Count 3.89 x10^6/uL (4.30-5.70) L Hemoglobin 11.7 g/dL (13.0-17.5) L Hematocrit 36.3 % (39.0-53.0) L Mean Corpuscular Volume 93 fL (79-100) Mean Corpuscular Hemoglobin 30 pg (25-35) Mean Corpuscular Hemoglobin Concent 32 g/dL (31-37) Red Cell Distribution Width 19.7 % (11.5-14.5) H Platelet Count 171 x10^3/uL (140-400) Neutrophils (%) (Auto) 95 % (31-73) H Lymphocytes (%) (Auto) 3 % (24-48) L Monocytes (%) (Auto) 2 % (0-9) Eosinophils (%) (Auto) 0 % (0-3) Basophils (%) (Auto) 0 % (0-3) Neutrophils # (Auto) 5.4 x10^3uL (1.8-7.7) Lymphocytes # (Auto) 0.2 x10^3/uL (1.0-4.8) L Monocytes # (Auto) 0.1 x10^3/uL (0.0-1.1) Eosinophils # (Auto) 0.0 x10^3/uL (0.0-0.7) Basophils # (Auto) 0.0 x10^3/uL (0.0-0.2) Magnesium Level 2.2 mg/dL (1.8-2.4) Physical Exam: Chest. Mildly decreased breath sounds. CV. Regular rate and rhythm with 1/6 systolic murmur. Abdomen. Soft. ASSESSMENT: 1. Acute respiratory failure secondary to combination of acute COPD exacerba tion and acute on chronic diastolic heart failure. The patient continues to improve. We will continue present treatment. 2. Acute on chronic diastolic heart failure: Last 2D echo showed LVEF 55% with severe pulmonary hypertension with PA pressure 77 mmHg. Chest x-ray did not show any acute process but BNP level significantly elevated. Continue diuresis with Lasix with close monitoring of BUN/creatinine. 3. Coronary artery disease s/p coronary artery bypass surgery in 2002, clinically stable and chest pain-free. Troponin levels within normal limits. He is usually followed by Dr. Banks with [facility]. 4. Paroxysmal atrial flutter, presently in sinus rhythm. Continue amiodarone for rhythm maintenance and Eliquis for stroke prophylaxis. 5. Hypertension: Controlled on present medications. 6. Hyperlipidemia: Statin intolerant, on Zetia 7. Acute on chronic renal insufficiency: Per PCP. Monitoring lab. Morning potassium at 4.3. Creatinine has declined from 2.2 and is 1.9 this morning. 8. PAD s/p [employer]/stent, stable without any claudication symptoms 9. Abdominal aortic aneurysm s/p TEVAR converted to open repair in 2008 Justification of Admission: Justification of Admission: Justification of Admission Dx: Yes GEOVANI LUJAN MD Oct 08, 2021 13:56
[2021-10-08] MEDS ORDERED: FUROSEMIDE 40 MG TABLET PO SCH (14:30)
[2021-10-08] MEDS ORDERED: IPRATRPIUM/ALBUTEROL 0.5/2.5MG 3 ML NEBU. NEB SCH (16:00)
--- NOTE | 2021-10-08 16:40 | NUR ---
Discharge Note: JACK PINA [address] Discharge instructions and discharge home medications reviewed with Patient and a copy given. All questions have been answered and understanding verbalized. The following instructions and handouts were given: eliquis and heart failure education Discontinued lines and drains: Peripheral IV intact. Patient discharged to Home or Self Care withFamily Membervia Wheelchair When pt's IV was removed he had significant bleeding. Pressure was held and the bleeding stopped. Pt and family educated on the increased risk of bleeding since he on blood thinners now and were told to watch out for bleeding at the IV site. Pt and family verbalized understanding. Pt set up with home oxygen through [employer]. Pt given O2 tank to go home with and company was contacted when pt discharged.
[2021-10-09] MEDS ORDERED: EZETIMIBE 10 MG TABLET PO SCH (09:00)
--- NOTE | 2021-10-18 23:17 | DS ---
DATE OF DISCHARGE: 10/08/2021 HOSPITAL COURSE: An 81-year-old gentleman came in initially through the office where the patient was noted to be extremely short of breath. The patient was sent through the Emergency Room and evaluated for his acute respiratory distress. The patient denied any chest pain. He is short of breath normally, but he was admitted to the hospital for further evaluation and treatment. He was seen by Cardiology for his acute respiratory failure and the patient was actually in the ICU for his acute respiratory failure, combination of COPD and chronic diastolic heart failure. The patient has a history of coronary artery disease and paroxysmal atrial flutter. The patient also has a history of severe hyperlipidemia and is a post-polio patient. The patient was generally weak. The patient was quite fluid overloaded. He was diuresed. He was given aggressive pulmonary toilet. His lactic acid was elevated at first, we had to take precautions that it was possibly from sepsis as he is a high risk for such. However, this probably verified that the patient's lactic acid was probably elevated from a metabolic source and his SARS were negative. His chest x-ray was negative for any consolidation, appeared to be that of an atelectasis. The patient's lactic acid did come down as he began to be oxygenated better. His albumin was extremely low at 2.5. His creatinine also showed that he had acute renal failure, had gone from 3.2 down to 1.9. Blood sugars were slightly elevated as well. He was very complicated patient. He was in the ICU because of the diversity of his multiple medical issues of heart failure and acute respiratory failure with exacerbation of COPD from probably a bronchitis type picture. The patient actually made relatively good progress overall. He received both antibiotics, steroids, aggressive pulmonary toilet, diuresis, seen by Cardiology as well. The patient made excellent progress during the rest of his hospitalization and was strong enough to be discharged back home. He did note to have some bleeding through his nose; however, he was on Eliquis and needed to be careful with the oxygen nasal cannula. The family was instructed on monitoring this very carefully and the bleeding did stop. He will get sleep care, we will give him oxygen with humidification and monitor him carefully at home. He was at 3 liters at 92%. Blood pressure was on the low side of 100/60. His last hemoglobin 11.7 and 36, white count 5.7, platelets were slightly low at 171. Sodium and potassium 144.3, BUN and creatinine 37 and 1.9 as noted earlier. Calcium was slightly low at 7.8, but that was pseudo-hypocalcemia secondary to his low albumin of 2.5. Thyroid was basically stable. His cardiac enzymes were basically normal. His initial BNP was over 35,000. In any case, the patient made relatively good progress. 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 He will continue with home therapy as well. IMPRESSION: Acute respiratory failure, acute on top of chronic diastolic heart failure, acute exacerbation of chronic obstructive pulmonary disease, probably secondary to bronchitis, metabolic acidosis, high lactic acid, chronic anemia, post-polio syndrome, severe protein malnutrition, acute on top of chronic renal failure, generalized atrophy to the musculoskeletal system secondary to his postpolio syndrome, hypotension, epistaxis secondary to nasal cannula abrasion. He will be on a heart-healthy diet with physical and occupational therapy per home health. MICHELLE/ROBYN DR: Joe TID: [id number]
== END 2021-10-08 16:47 | disposition home or self-care (01) | DRG 871 ==
LOC: ER 17:12 → 1 SOUTH 20:21
PROVIDERS: ADMIT Family Medicine; ATTEND Family Medicine
DX: A41.9 Sepsis, unspecified organism (principal); I50.33 Acute on chronic diastolic (congestive) heart failure; J96.01 Acute respiratory failure with hypoxia; E43 Unspecified severe protein-calorie malnutrition; I13.0 Hypertensive heart and chronic kidney disease with heart failure and stage 1 through stage 4 chronic kidney disease, or unspecified chronic kidney disease; I48.92 Unspecified atrial flutter; J44.0 Chronic obstructive pulmonary disease with (acute) lower respiratory infection; J44.1 Chronic obstructive pulmonary disease with (acute) exacerbation; J98.11 Atelectasis; N17.9 Acute kidney failure, unspecified; E87.2 Acidosis; E78.5 Hyperlipidemia, unspecified; G14 Postpolio syndrome; I25.10 Atherosclerotic heart disease of native coronary artery without angina pectoris; I27.20 Pulmonary hypertension, unspecified; I71.4 Abdominal aortic aneurysm, without rupture; I73.9 Peripheral vascular disease, unspecified; J20.9 Acute bronchitis, unspecified; N18.9 Chronic kidney disease, unspecified; Z95.1 Presence of aortocoronary bypass graft; Z98.62 Peripheral vascular angioplasty status; F41.9 Anxiety disorder, unspecified; G89.29 Other chronic pain; K21.9 Gastro-esophageal reflux disease without esophagitis; M19.90 Unspecified osteoarthritis, unspecified site; Z20.822 Contact with and (suspected) exposure to COVID-19; I95.9 Hypotension, unspecified; D64.9 Anemia, unspecified
CPT/HCPCS: 36415; 71045; 80048; 80053; 80069; 81001; 82553; 82803; 83605; 83735; 83880; 84443; 84484; 85025; 87040; 87086; 87426; 87804; 93005; 94618; 94640; 94760; 96361; 96374; J1100; J1940; J1956; J3490; U0003; 97530; 99285-25; J7030; J7613